=== PATIENT | female | born 1955 | race Caucasian/White ===

== ENCOUNTER → 2017-03-21 | Outpatient (CLI) | payer OTHER ==
[~2017-03-21] MED LIST: AMLO-110 PO; CALC200T PO; CALCTAB13 PO; ESTR1CRE PV; LITH1TAB PO; LOSA1TAB PO; MIRT30TA PO; OLAN-111 PO; RMR15 PO; SIMV20TA2 PO; TRAZ-119 PO
--- NOTE | 2017-03-22 14:52 | MAMMOGRAPHY REPORT ---
BILATERAL DIGITAL SCREENING MAMMOGRAM TOMOSYNTHESIS WITH CAD: 03/21/2017 CLINICAL HISTORY: Routine screening. Patient has no complaints. TECHNIQUE: Breast tomosynthesis in addition to standard 2D mammography was performed. Current study was also evaluated with a Computer Aided Detection (CAD) system. COMPARISON: Comparison is made to exams dated: 02/17/2016 mammogram, 02/10/2015 mammogram, 09/25/2013 mammogram, 09/19/2012 mammogram, 08/31/2011 mammogram, and 07/14/2010 mammogram - [facility]. BREAST COMPOSITION: There are scattered areas of fibroglandular density in both breasts. FINDINGS: There is a stable siddharth-shaped metallic biopsy marker in the central left breast, and stable grouped punctate microcalcifications in the left breast. There are mild vascular calcifications bi laterally. No suspicious mass, architectural distortion or cluster of suspicious microcalcification s is seen. IMPRESSION: ACR BI-RADS CATEGORY 1: NEGATIVE There is no mammographic evidence of malignancy. A 1 year screening mammogram is recommended. The p atient will receive written notification of the results. Approximately 10% of breast cancers are not detected with mammography. A negative mammographic repor t should not delay biopsy if a clinically suggestive mass is present. Ramya Richey M.D. ay/:03/21/2017 18:24:05 Iron Piler: Shirin Gan, [facility] letter sent: Normal 1/2 BI-RADS Code: ACR BI-RADS Category 1: Negative
== END | disposition home or self-care (01) ==
LOC: C.MAMM 15:43
PROVIDERS: ATTEND Family Medicine
DX: Z12.31 Encounter for screening mammogram for malignant neoplasm of breast (principal)

== ENCOUNTER → 2017-03-25 | Outpatient (CLI) | payer OTHER ==
[2017-03-25 11:31] LABS: CREATININE 0.98 mg/dl (0.60-1.20)
== END | disposition home or self-care (01) ==
LOC: C.LAB 10:01
PROVIDERS: ATTEND Psychiatry & Neurology Psychiatry
DX: F31.9 Bipolar disorder, unspecified (principal)

== ENCOUNTER → 2017-08-26 | Outpatient (CLI) | payer OTHER ==
[2017-08-26 11:16] LABS: BASO % 0.2 %; BASO ABS # 0.02 K/uL (0-0.2); COMPLETE YES; EOS % 3.3 %; HEMATOCRIT 44.6 % (37-47); IG% 0.2 %; LYMPH ABS # 1.81 K/uL (1.2-3.4); MEAN CELL VOLUME 86.6 fL (80-100); MEAN CORPUSCULAR HEMOGLOBIN 28.9 pg (25-34); MEAN CORPUSCULAR HGB CONC 33.4 g/dl (32-36); MEAN PLATELET VOLUME 9.9 fL (7.4-10.4); MONO % 5.6 %; NEUT % 68.7 %; PLATELET COUNT 266 K/uL (130-400); RED BLOOD COUNT 5.15 M/uL (4.2-5.4); WHITE BLOOD COUNT 8.21 K/uL (4.8-10.8)
[2017-08-26 11:43] LABS: CREATININE 1.02 mg/dl (0.60-1.20); GLUCOSE,FASTING 93 mg/dl (70-99)
[2017-08-26 11:53] LABS: CHOLESTEROL 116 mg/dl (0-200); CHOLESTEROL/HDL RATIO 2.8; HDL CHOLESTEROL 42 mg/dl; LDL CHOLESTEROL CALCULATED 59 mg/dl; TRIGLYCERIDES 74 mg/dl (0-150); VERY LOW DENSITY LIPOPROT CALC 15 mg/dl
== END | disposition home or self-care (01) ==
LOC: C.LAB 09:37
PROVIDERS: ATTEND Psychiatry & Neurology Psychiatry
DX: F31.9 Bipolar disorder, unspecified (principal); Z51.81 Encounter for therapeutic drug level monitoring; Z79.899 Other long term (current) drug therapy

== ENCOUNTER 2017-09-17 09:43 | Emergency (ER) | payer OTHER ==
[~2017-09-17] VITALS: Ht 167.6 cm; Wt 78.0 kg
[~2017-09-17 09:43] MED LIST changes: -AMLO-110 PO; -CALC200T PO; -LOSA1TAB PO; -MIRT30TA PO
[2017-09-17 09:55] VITALS: TEMP 36.7; Ht 167.6 cm; Wt 78.0 kg
--- NOTE | 2017-09-17 10:11 | EMERGENCY ROOM VISIT NOTE ---
History Report prepared by Melissa: Tara Marquez Under the Supervision of: Dr. Ace Momin D.O. First contact with patient: 09:58 Chief Complaint: NOSE BLEED (MINOR) Stated Complaint: NOSEBLEEDS History of Present Illness The patient is a 62 year old female who presents to the Emergency Room with complaints of intermittent nosebleeds starting several months ago. She has been having 2-3 nosebleeds a day on the right side. They just start out of the blue. The bleeding stops after she pinches her nose for 10-15 minutes. She has been to see her PCP who recommended saline spray. The saline spray had been helping, but her symptoms now seem to be worsening. She notes that she had the same side cauterized 3 years ago. Her last nosebleed was yesterday around noon. She denies any fever, chills, or vomiting. She was recently started on losartan. She denies any other changes in medication. Source of History: patient Onset: several months ago Position: nose Quality: other (bleeds) Timing: intermittent Associated Symptoms: No fevers, No chills, No vomiting Review of Systems See HPI for pertinent positives & negatives. A total of 10 systems reviewed and were otherwise negative. Past Medical & Surgical Medical Problems: (1) Bipolar disorder (2) Dyslipidemia (3) History of adenomatous polyp of colon (4) Osteoporosis (5) s/p colonoscopy (6) s/p tonsillectomy Family History No pertinent family history stated. Social History Smoking Status: Never Smoker Alcohol Use: none Drug Use: none Marital Status: Occupation Status: employed Current/Historical Medications Scheduled Amlodipine (Norvasc), Unknown Dose PO DAILY Calcium Carbonate-Vitamin D (Oscal 500/200 D-3), 1 TAB PO BID Evan Carbonate Er (Lithobid Ext Rel), 450 MG PO HS Losartan Potassium (Cozaar), 25 MG PO DAILY Mirtazapine (Remeron), 60 MG PO HS Olanzapine (Zyprexa), 5 MG PO HS Simvastatin (Zocor), 20 MG PO QPM Trazodone Hcl (Desyrel), 50 MG PO HS Allergies Coded Allergies: No Known Allergies (Verified , 09/17/17) Physical Exam Vital Signs Date Time Temp Pulse Resp B/P (MAP) Pulse Ox O2 Delivery O2 Flow Rate FiO2 09/17/17 11:23 86 20 135/90 96 09/17/17 09:55 36.7 94 17 139/91 95 Room Air Physical Exam GENERAL: Patient is awake, alert, and in no acute distress. Patient is resting comfortably and showing no signs of anxiety EYES: The conjunctivae are clear. The pupils are round and reactive. EARS, NOSE, MOUTH AND THROAT: The nose is without any evidence of any deformity. Mucous membranes are moist tongue is midline NECK: The neck is nontender and supple. RESPIRATORY: Normal respiratory effort is noted there is no evidence of wheezing rhonchi or rales CARDIOVASCULAR: Regular rate and rhythm noted there no murmurs rubs or gallops normal S1 normal S2 GASTROINTESTINAL: The abdomen is soft. Bowel sounds are present in all quadrants. Abdomen is nontender MUSCULOSKELETAL/EXTREMITIES: There is no evidence of gross deformity full range of motion is noted in the hips and shoulders SKIN: There is no obvious evidence of any rash. There are no petechiae, pallor or cyanosis noted. NEUROLOGIC: Patient is awake alert and oriented x3 strength is symmetric patellar reflexes are 2+ bilaterally Medical Decision & Procedures Laboratory Results 09/17/17 10:12 Red Blood Count 5.05, Mean Corpuscular Volume 86.7, Mean Corpuscular Hemoglobin 29.1, Mean Corpuscular Hemoglobin Concent 33.6, Mean Platelet Volume 9.4, Neutrophils (%) (Auto) 70.8, Lymphocytes (%) (Auto) 20.8, Monocytes (%) (Auto) 5.0, Eosinophils (%) (Auto) 3.0, Basophils (%) (Auto) 0.2, Neutrophils # (Auto) 6.36, Lymphocytes # (Auto) 1.87, Monocytes # (Auto) 0.45, Eosinophils # (Auto) 0.27, Basophils # (Auto) 0.02 09/17/17 10:12 Test 09/17/17 10:12 White Blood Count 8.99 K/uL (4.8-10.8) Red Blood Count 5.05 M/uL (4.2-5.4) Hemoglobin 14.7 g/dL (12.0-16.0) Hematocrit 43.8 % (37-47) Mean Corpuscular Volume 86.7 fL (80-100) Mean Corpuscular Hemoglobin 29.1 pg (25-34) Mean Corpuscular Hemoglobin Concent 33.6 g/dl (32-36) Platelet Count 229 K/uL (130-400) Mean Platelet Volume 9.4 fL (7.4-10.4) Neutrophils (%) (Auto) 70.8 % Lymphocytes (%) (Auto) 20.8 % Monocytes (%) (Auto) 5.0 % Eosinophils (%) (Auto) 3.0 % Basophils (%) (Auto) 0.2 % Neutrophils # (Auto) 6.36 K/uL (1.4-6.5) Lymphocytes # (Auto) 1.87 K/uL (1.2-3.4) Monocytes # (Auto) 0.45 K/uL (0.11-0.59) Eosinophils # (Auto) 0.27 K/uL (0-0.5) Basophils # (Auto) 0.02 K/uL (0-0.2) RDW Standard Deviation 42.6 fL (36.4-46.3) RDW Coefficient of Variation 13.5 % (11.5-14.5) Immature Granulocyte % (Auto) 0.2 % Immature Granulocyte # (Auto) 0.02 K/uL (0.00-0.02) Prothrombin Time 10.0 SECONDS (9.0-12.0) Prothromb Time International Ratio 0.9 (0.9-1.1) Activated Partial Thromboplast Time 27.7 SECONDS (21.0-31.0) Partial Thromboplastin Ratio 1.1 Anion Gap 5.0 mmol/L (3-11) Est Creatinine Clear Calc Drug Dose 56.1 ml/min Estimated GFR () 62.1 Estimated GFR (Non- 53.6 BUN/Creatinine Ratio 9.3 (10-20) Calcium Level 9.4 mg/dl (8.5-10.1) Total Bilirubin 0.4 mg/dl (0.2-1) Direct Bilirubin 0.1 mg/dl (0-0.2) Aspartate Amino Transf (AST/SGOT) 12 U/L (15-37) Alanine Aminotransferase (ALT/SGPT) 21 U/L (12-78) Alkaline Phosphatase 109 U/L (45-117) Total Protein 7.8 gm/dl (6.4-8.2) Albumin 4.2 gm/dl (3.4-5.0) Evan Level 0.6 mMOL/L (0.6-1.2) Laboratory results per my review. ED Course 0959: The patient was evaluated in room A12B. A complete history and physical examination were performed. 1152: I reevaluated the patient. She is resting comfortably. I discussed the results with her. She verbalized agreement of the treatment plan. She would like to schedule an ENT appointment herself. She was discharged home. Medical Decision Prior records/ancillary studies reviewed. Triage Nursing notes reviewed. The patient's history was concerning for epistaxis. Differential diagnosis: Etiologies such as anterior epistaxis, coagulopathy, traumatic injury, fracture , septal hematoma, posterior epistaxis as well as other pathologies were entertained. The patient is a 62-year-old female who presented to the emergency department for an evaluation of epistaxis. The patient did not have acute epistaxis or site could be identified causing epistaxis. The patient's laboratory results were discussed with her. She was encouraged to follow-up with her family doctor or to set up an appointment with an ear nose and throat physician. She was also encouraged to return to the emergency apartment immediately if symptoms change worsen or the need arises. Medication Reconcilliation Current Medication List: was personally reviewed by me Blood Pressure Screening Patient's blood pressure: Normal blood pressure Blood pressure disposition: Did not require urgent referral Impression Primary Impression: Epistaxis Scribe Attestation The scribe's documentation has been prepared under my direction and personally reviewed by me in its entirety. I confirm that the note above accurately reflects all work, treatment, procedures, and medical decision making performed by me. Departure Information Dispostion Home / Self-Care Referrals Loc Bradford M.D. (PCP) Forms HOME CARE DOCUMENTATION FORM, IMPORTANT VISIT INFORMATION, WORK / SCHOOL INSTRUCTIONS Patient Instructions My [facility], [facility] Additional Instructions Call to schedule a follow-up appointment with the ear nose and throat doctor. Continue all medications as prescribed. Continue using direct pressure when the bleeding starts.
[2017-09-17 10:24] LABS: BASO % 0.2 %; BASO ABS # 0.02 K/uL (0-0.2); COMPLETE YES; HEMATOCRIT 43.8 % (37-47); IG% 0.2 %; LYMPH % 20.8 %; LYMPH ABS # 1.87 K/uL (1.2-3.4); MEAN CELL VOLUME 86.7 fL (80-100); MEAN CORPUSCULAR HEMOGLOBIN 29.1 pg (25-34); MEAN CORPUSCULAR HGB CONC 33.6 g/dl (32-36); MEAN PLATELET VOLUME 9.4 fL (7.4-10.4); NEUT % 70.8 %; PLATELET COUNT 229 K/uL (130-400); RED BLOOD COUNT 5.05 M/uL (4.2-5.4); WHITE BLOOD COUNT 8.99 K/uL (4.8-10.8)
[2017-09-17 10:38] LABS: INR 0.9 (0.9-1.1); PARTIAL THROMBOPLASTIN RATIO 1.1
[2017-09-17] MEDS ORDERED: MIRT30TA PO (10:50)
[2017-09-17] MEDS ORDERED: CALC200T PO (10:50)
[2017-09-17] MEDS ORDERED: LOSA1TAB PO (10:50)
[2017-09-17] MEDS ORDERED: AMLO-110 PO (10:50)
[2017-09-17 10:51] LABS: BUN/CREATININE RATIO 9.3 (10-20); CALCIUM 9.4 mg/dl (8.5-10.1); CREATININE 1.11 mg/dl (0.60-1.20)
[2017-09-17 11:23] VITALS: BP 135/90; PULSE 86; O2SAT 96
== END 2017-09-17 12:27 | disposition home or self-care (01) ==
LOC: C.EDB 09:44 → C.EDA 12:27
DX: R04.0 Epistaxis (principal)

== ENCOUNTER → 2018-03-17 | Outpatient (CLI) | payer OTHER ==
[~2018-03-17] MED LIST changes: +AMLO-110 PO; +CALC200T PO; -CALCTAB13 PO; -ESTR1CRE PV; +LOSA1TAB PO; +MIRT30TA PO; -RMR15 PO
[2018-03-17 08:57] LABS: BASO % 0.4 %; BASO ABS # 0.04 K/uL (0-0.2); EOS % 2.8 %; EOS ABS # 0.26 K/uL (0-0.5); HEMATOCRIT 43.5 % (37-47); HEMOGLOBIN 14.6 g/dL (12.0-16.0); IG# 0.02 K/uL (0.00-0.02); LYMPH % 22.1 %; LYMPH ABS # 2.06 K/uL (1.2-3.4); MEAN CORPUSCULAR HEMOGLOBIN 28.5 pg (25-34); MEAN CORPUSCULAR HGB CONC 33.6 g/dl (32-36); MEAN PLATELET VOLUME 9.2 fL (7.4-10.4); MONO % 4.5 %; MONO ABS # 0.42 K/uL (0.11-0.59); NEUT ABS # 6.51 K/uL (1.4-6.5); PLATELET COUNT 233 K/uL (130-400); RED CELL DISTRIBUTION WIDTH SD 40.5 fL (36.4-46.3); WHITE BLOOD COUNT 9.31 K/uL (4.8-10.8)
[2018-03-17 09:33] LABS: CREATININE 1.08 mg/dl (0.60-1.20); GLUCOSE,FASTING 99 mg/dl (70-99)
[2018-03-17 09:43] LABS: CHOLESTEROL 125 mg/dl (0-200); LDL CHOLESTEROL CALCULATED 59 mg/dl
== END | disposition home or self-care (01) ==
LOC: C.LAB 08:01
PROVIDERS: ATTEND Psychiatry & Neurology Psychiatry
DX: F31.9 Bipolar disorder, unspecified (principal); Z79.899 Other long term (current) drug therapy

== ENCOUNTER 2025-03-13 17:24 | Inpatient (IN) ==
[2025-03-13 18:19] LABS: Hematocrit (blood only) 43.5 % (37.0-47.0); Hemoglobin 14.6 g/dl (12.0-16.0); Mean Corpuscular Hemoglobin 28.6 pg (25.0-34.0); Mean Corpuscular Hgb Conc 33.6 g/dL (32.0-36.0); Mean Corpuscular Volume 85.3 fL (80.0-100.0); Mean Platelet Volume 9.3 fL (9.4-12.4); Platelet Count 254 K/uL (130-400); RDW Coefficient of Variation 13.2 % (11.5-14.5); RDW Standard Deviation 40.9 fL (36.4-46.3); White Blood Count 28.04 K/ul (4.8-10.8)
[2025-03-13] MEDS: ONDANSETRON INJ 2 MG/ML 2 ML VIAL IV STA (18:30)
[2025-03-13] MEDS: HYDROmorphone INJ 0.5 MG/0.5 ML SYR IV PRN (18:31)
[2025-03-13] MEDS: SODIUM CHLORIDE 0.9% 1,000 ML IV ONE (18:32)
[2025-03-13 18:37] LABS: Albumin Globulin Ratio 1.4 (0.9-2); Albumin Level 4.4 gm/dl (3.4-5.0); Bilirubin,Total 1.3 mg/dl (0.2-1.0); Calcium 9.5 mg/dl (8.6-10.3); Creatinine Clr Calc Pharmacy 66.9 ml/min; Globulin 3.2 gm/dl (2.5-4.0); Potassium 3.9 mmol/L (3.5-5.1); Total Protein 7.6 gm/dl (6.0-8.3)
[2025-03-13 18:38] LABS: Basophils # (auto) 0.06 K/uL (0.00-0.20); Basophils % (auto) 0.2 %; Eosinophils # (auto) 0.02 K/uL (0.00-0.50); Eosinophils % (auto) 0.1 %; Immature Granulocytes % (auto) 1.1 %; Lymphocytes # (auto) 1.39 K/uL (1.20-3.40); Monocytes % (auto) 3.6 %; Neutrophils # (auto) 25.27 K/uL (1.40-6.50)
[2025-03-13 18:39] LABS: Appearance Urine Clear (Clear); Bacteria Urine Automated 1+ (None Seen); Bilirubin Urine Negative (Negative); Blood Urine 2+ (Negative); Cast Urine Automated 0-2 /lpf (0-2); Color Urine Dark Yellow; Glucose Urine UA Negative (Negative); Ketones Urine 1+ (Negative); Leukocyte Esterase Urine 2+ (Negative); Nitrite Urine Negative (Negative); Protein Urine 2+ (Negative); Specific Gravity Urine 1.026 (1.000-1.030); Urobilinogen Urine Negative (Negative); WBC Urine Automated 21-50 /hpf (0-5)
[2025-03-13 19:00] LABS: Influenza A virus by PCR Negative (Neg); Influenza B virus by PCR Negative (Neg); RSV by PCR Negative (Neg); SARS CoV2 RNA(COVID-19) Ceph NEGATIVE (Negative)
--- NOTE | 2025-03-13 19:00 | Emergency Department Note ---
Impression & Plan Colonic diverticular abscess, Abdominal pain, lower, Leukocytosis, Nausea ED Provider Note NAME: BENNIE HO AGE: 69 SEX: Female INFORMANT: Patient ED PROVIDER(S): Steve Saldivar MD CHIEF COMPLAINT: Abdominal pain PLAN: Disposition: Admitted Outpatient prescription management: none Referral: None MEDICAL DECISION MAKING: Patient present because of acute abdominal pain. She was tachycardic. She is quite tender on examination and rated her pain as a 9 out of 10. She was treated with IV fluids. She was given Dilaudid and Zofran for symptom control. Blood work showed a marked leukocytosis of 28,000. Chemistry panel was unremarkable. Patient was sent for CT imaging. IV Zosyn was ordered. CT imaging shows a suspected diverticular abscess. Urinalysis is abnormal and culture sent. On reassessment patient was doing well. No hypotension. [place] better with pain control. Clinically looked improved. IV daptomycin was added for additional coverage. Consultation was made with the [facility] service, Dr. Maharaj. Patient was evaluated in the ER and admitted for further management. Did discuss surgical consultation and he will place this for further management. Care/management discussed with: assistant sales center manager Level of care consideration(s): After review of the information above and other included data, I feel the patient requires escalation of care to admission Triage Nursing notes: reviewed and agree them. Vital Signs: reviewed and remarkable for tachycardia Additional History obtained from: none Chronic Medical/Social Conditions affecting care: none Prior/ Outside/ External records reviewed: none Differential Diagnosis: Diverticulitis, renal colic, UTI, appendicitis, mesenteric ischemia, aortic pathology, infections, inflammatory bowel disease, PUD, biliary pathology, as well as other pathologies. Diagnostics, independently interpreted by me: ECG: Twelve-lead ECG reveals sinus tachycardia [address] elevation or depression. Cardiac Monitoring: Cardiac monitoring ordered by me: The patient was placed on continuous cardiac monitoring and observed. It revealed sinus tachycardic rhythm at 105 beats per minute without ectopy or evidence of dysrhythmia. Medical decision rules: none Imaging studies: CT imaging of the abdomen pelvis is concerning for diverticular abscess. I refer you to the EMR for further details. HPI: 69 year old Female arrives for evaluation of abdominal pain. This started yesterday and and is worsening. The patient also notes the following associated symptoms, nausea, dry heaves, chills, feeling feverish. The patient has found no relieving factors. Current pain is rated as 9/10. Pt denies LOC, headache, diaphoresis, visual changes, neck pain, chest pain, breathing difficulties, back pain, melena, hematochezia, urinary symptoms, numbness, weakness, lymphadenopathy, rash, or other complaints. PAST MEDICAL HISTORY: See Below, diverticulitis, hypertension PAST SURGICAL HISTORY: See Below, SOCIAL HISTORY: See Below, non-smoker HOME MEDICATIONS: See Below ALLERGIES: See Below VITALS: See Below PHYSICAL EXAMINATION: GENERAL: Awake, alert, uncomfortable-appearing, in no distress HENT: Normocephalic, atraumatic. Oropharynx unremarkable. EYES: Normal conjunctiva. Sclera non-icteric. NECK: Inspection normal. Non-tender. Supple. No nuchal rigidity. FROM. No masses. RESPIRATORY: Clear to auscultation. No wheezes. No rales. Normal respiratory effort. CARDIAC: Tachycardic rate. Normal rhythm. No murmurs. No rubs. Extremities warm and well perfused. Pulses equal. No JVD. GI: Soft, non-distended. Left lower quadrant tenderness to palpation. Mild rebound and guarding. No masses. RECTAL: Deferred. MUSCULOSKELETAL: Atraumatic. Chest examination reveals no tenderness. The back is symmetrical on inspection without obvious abnormality. There is no CVA tenderness to palpation. No joint edema. LOWER EXTREMITIES: Calves are equal size bilaterally and non-tender. No edema. No discoloration. NEURO: Normal sensorium. No sensory or motor deficits noted. SKIN: No rash or jaundice noted. PROCEDURES: none CRITICAL CARE: none OBSERVATION NOTE: none Past Med/Surg History Problem List (Updated 03/13/25 @ 20:58 by Steve Saldivar MD) Colonic diverticular abscess (Acute) Nausea (Acute) Leukocytosis (Acute) Abdominal pain, lower (Acute) Family history of Alzheimer's disease Vitamin D deficiency HTN (hypertension) Osteoporosis Dyslipidemia Bipolar disorder Abnormal brain MRI Vertigo Medical History (Updated 03/13/25 @ 20:58 by Steve Saldivar MD) Benign neoplasm of colon Surgical History (Updated 10/09/23 @ 14:43 by Mendy Lazaro) Hx of colonoscopy History of tonsillectomy and adenoidectomy Family History (Updated 10/09/23 @ 14:45 by Mendy Lazaro) Mother Alzheimer disease Grandmother (Maternal) Cancer Aunt Cancer Sister Depression Social History (Updated 10/09/23 @ 14:46 by Mendy Lazaro) Smoking Status: Former smoker Do You Dip or Chew Tobacco: No; Hx Alcohol Use: No Hx Substance Use: No Preferred Language: Amharic marital status: Feels Safe at Home: Yes Allergies Allergies Allergy/AdvReac Type Severity Reaction Status Date / Time lisinopril Allergy Verified 10/16/23 09:45 Home Meds Home Medications Medication Instructions Recorded Confirmed LITHIUM CARBONATE ER (LITHOBID EXT 450 mg PO HS #0 tabs 06/06/12 10/16/23 REL) OLANZAPINE (ZYPREXA) 5 mg PO HS #0 tabs 06/06/12 10/16/23 SIMVASTATIN (ZOCOR) 20 mg PO QPM #0 tabs 06/06/12 10/16/23 TRAZODONE HCL (DESYREL) 50 mg PO HS #0 tabs 06/06/12 10/16/23 Amlodipine (Norvasc) PO DAILY #0 tabs 09/17/17 10/16/23 CALCIUM CARBONATE-VITAMIN D (OSCAL 1 tab PO BID ##0 09/17/17 10/16/23 500/200 D-3) LOSARTAN POTASSIUM (COZAAR) 25 mg PO DAILY #0 tabs 09/17/17 10/16/23 MIRTAZAPINE (REMERON) 60 mg PO HS #0 tabs 09/17/17 10/16/23 alprazolam 0.25 mg tablet 0.25 mg PO BID 10/09/23 10/16/23 meclizine 25 mg tablet 25 mg PO TID 10/09/23 10/16/23 multivitamin 1 tab PO DAILY 10/09/23 10/16/23 Results & Data (ED) Vital Signs Vital Signs - 24 hr 03/13/25 17:38 03/13/25 18:23 03/13/25 18:27 Temperature 36.8 C Temperature Source Oral Pulse Rate 116 H 115 H Pulse Rate [Apical] Respiratory Rate 20 Respiratory Effort / Characteristics Non-Labored Spontaneous Respiratory Depth Normal Respiratory Pattern Regular Blood Pressure 152/75 H Blood Pressure [Left Arm] Blood Pressure Mean 100 Blood Pressure Mean [Left Arm] Pulse Oximetry 95 93 Oxygen Delivery Method Room Air Room Air Sepsis Recent Fever Within 48 Hours Yes Sepsis New/Unexplained Change in Mental Status No Sepsis Action Taken by Nursing No Action Required 03/13/25 19:27 Temperature Temperature Source Pulse Rate Pulse Rate [Apical] 103 H Respiratory Rate 17 Respiratory Effort / Characteristics Respiratory Depth Respiratory Pattern Blood Pressure Blood Pressure [Left Arm] 135/76 Blood Pressure Mean Blood Pressure Mean [Left Arm] 95 Pulse Oximetry 90 Oxygen Delivery Method Room Air Sepsis Recent Fever Within 48 Hours Sepsis New/Unexplained Change in Mental Status Sepsis Action Taken by Nursing Laboratory Data 03/13/25 18:04 03/13/25 18:04 Lab Results 03/13/25 03/13/25 03/13/25 Range/Units 18:00 18:04 18:20 WBC 28.04 H (4.8-10.8) K/ul RBC 5.10 (4.20-5.40) M/uL Hgb 14.6 (12.0-16.0) g/dl Hct 43.5 (37.0-47.0) % MCV 85.3 (80.0-100.0) fL MCH 28.6 (25.0-34.0) pg MCHC 33.6 (32.0-36.0) g/dL RDW Std Deviation 40.9 (36.4-46.3) fL RDW Coeff of Doe 13.2 (11.5-14.5) % Plt Count 254 (130-400) K/uL MPV 9.3 L (9.4-12.4) fL Immature Gran % (Auto) 1.1 % Neut % (Auto) 90.0 % Lymph % (Auto) 5.0 % [place] % (Auto) 3.6 % Eos % (Auto) 0.1 % Baso % (Auto) 0.2 % Neut # (Auto) 25.27 H (1.40-6.50) K/uL Lymph # (Auto) 1.39 (1.20-3.40) K/uL [place] # (Auto) 1.00 H (0.11-0.59) K/uL Eos # (Auto) 0.02 (0.00-0.50) K/uL Baso # (Auto) 0.06 (0.00-0.20) K/uL Immature Gran # (Auto) 0.30 H (0.01-0.20) K/uL Sodium 136 (136-145) mmol/L Potassium 3.9 (3.5-5.1) mmol/L Chloride 104 (98-107) mmol/L Carbon Dioxide 25 (21-32) mmol/L Anion Gap 7 (3-11) BUN 15 (6-23) mg/dl Creatinine 0.88 (0.6-1.2) mg/dl Est Cr Clr Drug Dosing 66.9 ml/min eGFR 71.54 BUN/Creatinine Ratio 17.0 (10-20) Glucose 136 H (70-99(Fasting)) mg/dl Calcium 9.5 (8.6-10.3) mg/dl Total Bilirubin 1.3 H (0.2-1.0) mg/dl AST 19 (13-39) U/L ALT 18 (7-52) U/L Alkaline Phosphatase 96 (34-104) U/L Total Protein 7.6 (6.0-8.3) gm/dl Albumin 4.4 (3.4-5.0) gm/dl Globulin 3.2 (2.5-4.0) gm/dl Albumin/Globulin Ratio 1.4 (0.9-2) Lipase 21 (11-82) U/L Urine Color Dark Yellow Urine Appearance Clear (Clear) Urine pH 6.0 (4.5-7.5) Ur Specific [place] 1.026 (1.000-1.030) Urine Protein 2+ H (Negative) Urine Glucose (UA) Negative (Negative) Urine Ketones 1+ H (Negative) Urine Blood 2+ H (Negative) Urine Nitrite Negative (Negative) Urine Bilirubin Negative (Negative) Urine Urobilinogen Negative (Negative) Ur Leukocyte Esterase 2+ H (Negative) Urine WBC (Auto) 21-50 H (0-5) /hpf Urine RBC (Auto) 11-20 H (0-2) /hpf U Hyaline Cast (Auto) 0-2 (0-2) /lpf U Epithel Cells (Auto) 6-10 H (0-2) /hpf Urine Bacteria (Auto) 1+ H (None Seen) SARS-CoV-2 (PCR) NEGATIVE (Negative) Influenza Type A (PCR) Negative (Neg) Influenza Type B (PCR) Negative (Neg) RSV (RT-PCR) Negative (Neg) Administered Medications Hydromorphone HCl (Hydromorphone Inj 0.5 Mg/0.5 Ml Syr) 0.5 mg IV Q15M PRN PRN Reason: Pain Stop: 03/27/25 18:25 Last Admin: 03/13/25 18:31 Dose: 0.5 mg Documented By: GABBIE Sodium Chloride (Nss) 1,000 mls @ 125 mls/hr IV .Q8H TOMASZ Stop: 03/16/25 18:29 Last Admin: 03/13/25 19:50 Dose: 125 mls/hr Documented By: GABBIE Discontinued Medications Sodium Chloride (Nss) 1,000 mls @ 999 mls/hr IV .Q1H1M ONE Stop: 03/13/25 19:28 Last Infusion: 03/13/25 19:50 Dose: Infused Documented By: Admin: 03/13/25 18:32 Dose: 999 mls/hr Documented By: GABBIE Piperacillin Sod/Tazobactam Sod (Zosyn) 4.5 gm in 100 mls @ 200 mls/hr IV NOW ONE; Protocol Stop: 03/13/25 19:20 Last Infusion: 03/13/25 19:55 Dose: Infused Documented By: Admin: 03/13/25 19:23 Dose: 200 mls/hr Documented By: GABBIE Ondansetron HCl (Ondansetron Inj 2 Mg/Ml 2 Ml Vial) 4 mg IV NOW STA Stop: 03/13/25 18:27 Last Admin: 03/13/25 18:30 Dose: 4 mg Documented By: GABBIE Imaging Data Radiologist's Impression: Abdomen/Pelvis CT 03/13/25 18:08 EXAM: CT abd pelvis wo con CLINICAL HISTORY: Lower abdominal pain, hx of diverticulitis TECHNIQUE: Non-contrast CT of the abdomen and pelvis was performed, with the following protocol: axial images, and reconstructed coronal and sagittal images. No intravenous contrast was administered. One of the following dose reduction techniques was utilized for this exam: Automated exposure control, adjustment of the mA and/or kV according to patient size, and use of iterative reconstruction. DLP: 1275.80 mGy-cm. COMPARISON: No prior studies available for comparison. FINDINGS: Abdomen: Liver: Normal in size, shape, and density. No focal lesions, cysts, or masses were identified. Gallbladder and Biliary System: The gallbladder is normal in size and shape. No wall thickening, pericholecystic fluid, or gallstones were identified. Pancreas: Pancreatic head, body, and tail are visualized and appear normal in size and density. No pancreatic masses or calcifications were noted. Spleen: Normal in size, shape, and density. No splenic lesions or masses were identified. Kidneys and Adrenal Glands: Both kidneys are normal in size, shape, and position. Cortical thickness is within normal limits. No renal calculi or hydronephrosis. Adrenal glands are unremarkable. Appendix: The appendix is normal in size without ade-appendiceal fat stranding and without an appendicolith. No evidence of appendiceal abscess or perforation. Pelvis: Urinary Bladder: Normal in contour and wall thickness. No intraluminal lesions. Uterus: Normal in size and contour. No masses or abnormal thickening. Ovaries: Not well visualized but no gross abnormalities noted. Vagina: Normal in contour and wall thickness. Cervix: No evidence of mass or abnormal thickening. Bowel: The visualized bowel loops are normal in caliber. No evidence of bowel obstruction. Diffuse colonic diverticulosis. Gas-containing area in between the uterine fundus and sigmoid colon measuring 4.1 x 5.1 cm with perifocal fat stranding, suggestive of a diverticular abscess (Hinchey stage Ib). Clinical and laboratory correlation are advised as well as follow up. It is inseparable from the left gonadal vein, couldn't exclude the possibility of thrombophlebitis. Further assessment with contrast study may be recommended. Multiple locoregional reactive mesocolic lymph nodes are seen, largest 1.1 x 1.3 cm. Thickening of left peritoneal reflections also noted. Multiple reactive left external iliac lymph nodes. Two large uncomplicated duodenal diverticula, measuring 6.5 x 6.4 cm and 5 x 5.7 cm. Bones and Soft Tissues: Moderate (grade 2) spondylolisthesis of L5 over S1 Diffuse osteoporotic and spondylotic changes. T11 old compression vertebral fracture. IMPRESSION: 1. Diffuse colonic diverticulosis. 2. Gas-containing area in between the uterine fundus and sigmoid colon measuring 4.1 x 5.1 cm with perifocal fat stranding, suggestive of a diverticular abscess (Hinchey stage Ib). Clinical and laboratory correlation are advised as well as follow up. 3. It is inseparable from the left gonadal vein, couldn't exclude the possibility of thrombophlebitis. Further assessment with contrast study may be recommended. 4. Multiple locoregional reactive mesocolic lymph nodes are seen, largest 1.1 x 1.3 cm. Thickening of left peritoneal reflections also noted. 5. Multiple reactive left external iliac lymph nodes. 6. Two large uncomplicated duodenal diverticula, measuring 6.5 x 6.4 cm and 5 x 5.7 cm. Electronically signed by Rojelio Maravilla 03-13-2025 8:42 PM Discharge Plan Visit Data Chief Complaint: Abdominal Pain Stated Complaint: STOMACH PAINS, FEVER, CAT SCAN NEEDED, ED Provider: Steve Saldivar Discharge Problem: Colonic diverticular abscess, Abdominal pain, lower, Leukocytosis, Nausea Patient Disposition: Admitted As Inpatient Condition: Fair Forms Stand Alone Forms: [facility] Prescriptions Prescriptions: No Action OLANZAPINE (ZYPREXA) 5 MG tablet 5 mg PO HS Qty: 0 SIMVASTATIN (ZOCOR) 20 MG tablet 20 mg PO QPM Qty: 0 TRAZODONE HCL (DESYREL) 50 MG tablet 50 mg PO HS Qty: 0 LITHIUM CARBONATE ER (LITHOBID EXT REL) 450 MG tablet 450 mg PO HS Qty: 0 Amlodipine (Norvasc) 5 MG tablet PO DAILY Qty: 0 CALCIUM CARBONATE-VITAMIN D (OSCAL 500/200 D-3) 1 TAB tablet 1 tab PO BID Qty: 0 LOSARTAN POTASSIUM (COZAAR) 25 MG tablet 25 mg PO DAILY Qty: 0 MIRTAZAPINE (REMERON) 30 MG tablet 60 mg PO HS Qty: 0 alprazolam 0.25 mg tablet 0.25 mg PO BID meclizine 25 mg tablet 25 mg PO TID multivitamin Tablet 1 tab PO DAILY Referrals Referrals: Loc Bradford MD [Primary Care Provider] -
[2025-03-13] MEDS: PIPERACILLIN/TAZOBACTAM 4.5 GM/100 ML BAG IV ONE (19:23)
[2025-03-13] MEDS: SODIUM CHLORIDE 0.9% 1,000 ML IV SCH (19:50)
--- NOTE | 2025-03-13 20:42 | CT Scan Report ---
EXAM: CT abd pelvis wo con CLINICAL HISTORY: Lower abdominal pain, hx of diverticulitis TECHNIQUE: Non-contrast CT of the abdomen and pelvis was performed, with the following protocol: axial images, and reconstructed coronal and sagittal images. No intravenous contrast was administered. One of the following dose reduction techniques was utilized for this exam: Automated exposure control, adjustment of the mA and/or kV according to patient size, and use of iterative reconstruction. DLP: 1275.80 mGy-cm. COMPARISON: No prior studies available for comparison. FINDINGS: Abdomen: Liver: Normal in size, shape, and density. No focal lesions, cysts, or masses were identified. Gallbladder and Biliary System: The gallbladder is normal in size and shape. No wall thickening, pericholecystic fluid, or gallstones were identified. Pancreas: Pancreatic head, body, and tail are visualized and appear normal in size and density. No pancreatic masses or calcifications were noted. Spleen: Normal in size, shape, and density. No splenic lesions or masses were identified. Kidneys and Adrenal Glands: Both kidneys are normal in size, shape, and position. Cortical thickness is within normal limits. No renal calculi or hydronephrosis. Adrenal glands are unremarkable. Appendix: The appendix is normal in size without ade-appendiceal fat stranding and without an appendicolith. No evidence of appendiceal abscess or perforation. Pelvis: Urinary Bladder: Normal in contour and wall thickness. No intraluminal lesions. Uterus: Normal in size and contour. No masses or abnormal thickening. Ovaries: Not well visualized but no gross abnormalities noted. Vagina: Normal in contour and wall thickness. Cervix: No evidence of mass or abnormal thickening. Bowel: The visualized bowel loops are normal in caliber. No evidence of bowel obstruction. Diffuse colonic diverticulosis. Gas-containing area in between the uterine fundus and sigmoid colon measuring 4.1 x 5.1 cm with perifocal fat stranding, suggestive of a diverticular abscess (Hinchey stage Ib). Clinical and laboratory correlation are advised as well as follow up. It is inseparable from the left gonadal vein, couldn't exclude the possibility of thrombophlebitis. Further assessment with contrast study may be recommended. Multiple locoregional reactive mesocolic lymph nodes are seen, largest 1.1 x 1.3 cm. Thickening of left peritoneal reflections also noted. Multiple reactive left external iliac lymph nodes. Two large uncomplicated duodenal diverticula, measuring 6.5 x 6.4 cm and 5 x 5.7 cm. Bones and Soft Tissues: Moderate (grade 2) spondylolisthesis of L5 over S1 Diffuse osteoporotic and spondylotic changes. T11 old compression vertebral fracture. IMPRESSION: 1. Diffuse colonic diverticulosis. 2. Gas-containing area in between the uterine fundus and sigmoid colon measuring 4.1 x 5.1 cm with perifocal fat stranding, suggestive of a diverticular abscess (Hinchey stage Ib). Clinical and laboratory correlation are advised as well as follow up. 3. It is inseparable from the left gonadal vein, couldn't exclude the possibility of thrombophlebitis. Further assessment with contrast study may be recommended. 4. Multiple locoregional reactive mesocolic lymph nodes are seen, largest 1.1 x 1.3 cm. Thickening of left peritoneal reflections also noted. 5. Multiple reactive left external iliac lymph nodes. 6. Two large uncomplicated duodenal diverticula, measuring 6.5 x 6.4 cm and 5 x 5.7 cm. Electronically signed by Rojelio Maravilla 03-13-2025 8:42 PM
--- NOTE | 2025-03-13 21:37 | History & Physical Report ---
Date of Service March 13, 2025 Assessment & Plan (1) Colonic diverticular abscess: Plan: 69-year-old female with past medical history significant for dyslipidemia, hypertension, vitamin D deficiency, bipolar affective disorder and depression presents with left-sided abdominal pain. Patient says left-sided abdominal pain started Monday morning 3:30 AM. Pain is 9/10 in severity. Associated with dry heaves. Having normal bowel movements. Normal micturition. Denies any chest pain. No shortness of breath. No cough. Has some runny nose. No sore throat. No earaches. Slightly tachycardic. Blood pressure is okay. She had temperature at home. Currently afebrile. History of diverticulitis several years ago. Colon diverticular abscess CT scan showing 4.1 x 5.1 cm diverticular abscess Multiple locoregional lymph nodes largest 1.1 x1.3 cm. Multiple left external iliac lymph nodes 2 large uncomplicated duodenal diverticula measuring 6.5 x 6.4 cm Er started on IV Zosyn and Dapto which will be continued IV fluids Will follow lactic acid N.p.o. 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 Patient says left-sided abdominal pain started Monday morning 3:30 AM. Pain is 9/10 in severity. Associated with dry heaves. Having normal bowel movements. Normal micturition. Denies any chest pain. No shortness of breath. No cough. Has some runny nose. No sore throat. No earaches. Slightly tachycardic. Blood pressure is okay. She had temperature at home. Currently afebrile. History of diverticulitis several years ago. Past medical history. As mentioned above. Past surgical history. Colonoscopy. Tonsillectomy and adenoidectomy. Social history. No smoking. No alcohol use. No drug use. Family history. Paternal aunt had cancer. Maternal grandmother had cancer. Mother had Alzheimer's disease. Sister has depression. Allergies Allergy/AdvReac Type Severity Reaction Status Date / Time lisinopril Allergy Verified 03/13/25 21:03 Home Medications Medication Instructions Recorded Confirmed Type LITHIUM CARBONATE ER (LITHOBID EXT 450 mg PO HS #0 tabs 06/06/12 03/13/25 History REL) OLANZAPINE (ZYPREXA) 5 mg PO HS #0 tabs 06/06/12 03/13/25 History SIMVASTATIN (ZOCOR) 20 mg PO QPM #0 tabs 06/06/12 03/13/25 History TRAZODONE HCL (DESYREL) 50 mg PO HS #0 tabs 06/06/12 03/13/25 History Amlodipine (Norvasc) 5 mg PO DAILY #0 tabs 09/17/17 03/13/25 History CALCIUM CARBONATE-VITAMIN D (OSCAL 1 tab PO BID ##0 09/17/17 03/13/25 History 500/200 D-3) LOSARTAN POTASSIUM (COZAAR) 25 mg PO DAILY #0 tabs 09/17/17 03/13/25 History MIRTAZAPINE (REMERON) 60 mg PO HS #0 tabs 09/17/17 03/13/25 History alprazolam 0.25 mg tablet 0.25 mg PO BID 10/09/23 03/13/25 History multivitamin 1 tab PO DAILY 10/09/23 03/13/25 History Past Med/Surg History Problem List (Updated 03/13/25 @ 20:58 by Steve Saldivar MD) Colonic diverticular abscess (Acute) Nausea (Acute) Leukocytosis (Acute) Abdominal pain, lower (Acute) Family history of Alzheimer's disease Vitamin D deficiency HTN (hypertension) Osteoporosis Dyslipidemia Bipolar disorder Abnormal brain MRI Vertigo Medical History (Updated 03/13/25 @ 20:58 by Steve Saldivar MD) Benign neoplasm of colon Surgical History (Updated 10/09/23 @ 14:43 by Mendy Lazaro) Hx of colonoscopy History of tonsillectomy and adenoidectomy Family History (Updated 10/09/23 @ 14:45 by Mendy Lazaro) Mother Alzheimer disease Grandmother (Maternal) Cancer Aunt Cancer Sister Depression Social History (Updated 10/09/23 @ 14:46 by Mendy Lazaro) Smoking Status: Former smoker Smoking End Date: Teenager; Do You Dip or Chew Tobacco: No; Hx Alcohol Use: No Hx Substance Use: No Preferred Language: Serbian Double Needle Operator Required: No Beliefs That Will Affect Care: None marital status: Current Living Situation: Alone Feels Safe at Home: Yes Assistive Devices: Glasses Review of Systems Review of Systems: All systems reviewed & are unremarkable except as noted in HPI & below Physical Exam Physical Exam: General- Not in distress Head- atraumatic Eyes- PERRL. ENT- oropharynx clear Neck- supple, no JVD. Lungs- clear to auscultation no wheezing or crackles Heart- regular rhythm; no murmur, no gallop. Abdomen- normal bowel sounds, soft, tenderness in LLQ , no guarding, no distension Extremities- mild pretibial edema present , no erythema seen Neuro- alert, oriented PERRL, no facial palsy; no dysarthria; moves extremities Results & Data Results & Data Vital Signs (Past 12 Hours) Vital Signs Temp Pulse Pulse Resp BP BP Pulse Ox 03/13/25 19:27 103 H 17 135/76 90 03/13/25 18:27 93 03/13/25 18:23 115 H 03/13/25 17:38 36.8 C 116 H 20 152/75 H 95 O2 Del Method 03/13/25 19:27 Room Air 03/13/25 18:27 Room Air 03/13/25 18:23 03/13/25 17:38 Room Air Diagnostic Findings Laboratory Results WBC 28.04 K/ul (4.8-10.8) H 03/13/25 18:04 RBC 5.10 M/uL (4.20-5.40) 03/13/25 18:04 Hgb 14.6 g/dl (12.0-16.0) 03/13/25 18:04 Hct 43.5 % (37.0-47.0) 03/13/25 18:04 MCV 85.3 fL (80.0-100.0) 03/13/25 18:04 MCH 28.6 pg (25.0-34.0) 03/13/25 18:04 MCHC 33.6 g/dL (32.0-36.0) 03/13/25 18:04 RDW Std Deviation 40.9 fL (36.4-46.3) 03/13/25 18:04 RDW Coeff of Doe 13.2 % (11.5-14.5) 03/13/25 18:04 Plt Count 254 K/uL (130-400) 03/13/25 18:04 MPV 9.3 fL (9.4-12.4) L 03/13/25 18:04 Immature Gran % (Auto) 1.1 % 03/13/25 18:04 Neut % (Auto) 90.0 % 03/13/25 18:04 Lymph % (Auto) 5.0 % 03/13/25 18:04 [place] % (Auto) 3.6 % 03/13/25 18:04 Eos % (Auto) 0.1 % 03/13/25 18:04 Baso % (Auto) 0.2 % 03/13/25 18:04 Neut # (Auto) 25.27 K/uL (1.40-6.50) H 03/13/25 18:04 Lymph # (Auto) 1.39 K/uL (1.20-3.40) 03/13/25 18:04 [place] # (Auto) 1.00 K/uL (0.11-0.59) H 03/13/25 18:04 Eos # (Auto) 0.02 K/uL (0.00-0.50) 03/13/25 18:04 Baso # (Auto) 0.06 K/uL (0.00-0.20) 03/13/25 18:04 Immature Gran # (Auto) 0.30 K/uL (0.01-0.20) H 03/13/25 18:04 Sodium 136 mmol/L (136-145) 03/13/25 18:04 Potassium 3.9 mmol/L (3.5-5.1) 03/13/25 18:04 Chloride 104 mmol/L (98-107) 03/13/25 18:04 Carbon Dioxide 25 mmol/L (21-32) 03/13/25 18:04 Anion Gap 7 (3-11) 03/13/25 18:04 BUN 15 mg/dl (6-23) 03/13/25 18:04 Creatinine 0.88 mg/dl (0.6-1.2) 03/13/25 18:04 Est Cr Clr Drug Dosing 66.9 ml/min 03/13/25 18:04 eGFR 71.54 03/13/25 18:04 BUN/Creatinine Ratio 17.0 (10-20) 03/13/25 18:04 Glucose 136 mg/dl (70-99(Fasting)) H 03/13/25 18:04 Calcium 9.5 mg/dl (8.6-10.3) 03/13/25 18:04 Total Bilirubin 1.3 mg/dl (0.2-1.0) H 03/13/25 18:04 AST 19 U/L (13-39) 03/13/25 18:04 ALT 18 U/L (7-52) 03/13/25 18:04 Alkaline Phosphatase 96 U/L (34-104) 03/13/25 18:04 Total Protein 7.6 gm/dl (6.0-8.3) 03/13/25 18:04 Albumin 4.4 gm/dl (3.4-5.0) 03/13/25 18:04 Globulin 3.2 gm/dl (2.5-4.0) 03/13/25 18:04 Albumin/Globulin Ratio 1.4 (0.9-2) 03/13/25 18:04 Lipase 21 U/L (11-82) 03/13/25 18:04 Urine Color Dark Yellow 03/13/25 18:20 Urine Appearance Clear (Clear) 03/13/25 18:20 Urine pH 6.0 (4.5-7.5) 03/13/25 18:20 Ur Specific [place] 1.026 (1.000-1.030) 03/13/25 18:20 Urine Protein 2+ (Negative) H 03/13/25 18:20 Urine Glucose (UA) Negative (Negative) 03/13/25 18:20 Urine Ketones 1+ (Negative) H 03/13/25 18:20 Urine Blood 2+ (Negative) H 03/13/25 18:20 Urine Nitrite Negative (Negative) 03/13/25 18:20 Urine Bilirubin Negative (Negative) 03/13/25 18:20 Urine Urobilinogen Negative (Negative) 03/13/25 18:20 Ur Leukocyte Esterase 2+ (Negative) H 03/13/25 18:20 Urine WBC (Auto) 21-50 /hpf (0-5) H 03/13/25 18:20 Urine RBC (Auto) 11-20 /hpf (0-2) H 03/13/25 18:20 U Hyaline Cast (Auto) 0-2 /lpf (0-2) 03/13/25 18:20 U Epithel Cells (Auto) 6-10 /hpf (0-2) H 03/13/25 18:20 Urine Bacteria (Auto) 1+ (None Seen) H 03/13/25 18:20 SARS-CoV-2 (PCR) NEGATIVE (Negative) 03/13/25 18:00 Influenza Type A (PCR) Negative (Neg) 03/13/25 18:00 Influenza Type B (PCR) Negative (Neg) 03/13/25 18:00 RSV (RT-PCR) Negative (Neg) 03/13/25 18:00 Impressions Abdomen/Pelvis CT 03/13/25 18:08 EXAM: CT abd pelvis wo con CLINICAL HISTORY: Lower abdominal pain, hx of diverticulitis TECHNIQUE: Non-contrast CT of the abdomen and pelvis was performed, with the following protocol: axial images, and reconstructed coronal and sagittal images. No intravenous contrast was administered. One of the following dose reduction techniques was utilized for this exam: Automated exposure control, adjustment of the mA and/or kV according to patient size, and use of iterative reconstruction. DLP: 1275.80 mGy-cm. COMPARISON: No prior studies available for comparison. FINDINGS: Abdomen: Liver: Normal in size, shape, and density. No focal lesions, cysts, or masses were identified. Gallbladder and Biliary System: The gallbladder is normal in size and shape. No wall thickening, pericholecystic fluid, or gallstones were identified. Pancreas: Pancreatic head, body, and tail are visualized and appear normal in size and density. No pancreatic masses or calcifications were noted. Spleen: Normal in size, shape, and density. No splenic lesions or masses were identified. Kidneys and Adrenal Glands: Both kidneys are normal in size, shape, and position. Cortical thickness is within normal limits. No renal calculi or hydronephrosis. Adrenal glands are unremarkable. Appendix: The appendix is normal in size without ade-appendiceal fat stranding and without an appendicolith. No evidence of appendiceal abscess or perforation. Pelvis: Urinary Bladder: Normal in contour and wall thickness. No intraluminal lesions. Uterus: Normal in size and contour. No masses or abnormal thickening. Ovaries: Not well visualized but no gross abnormalities noted. Vagina: Normal in contour and wall thickness. Cervix: No evidence of mass or abnormal thickening. Bowel: The visualized bowel loops are normal in caliber. No evidence of bowel obstruction. Diffuse colonic diverticulosis. Gas-containing area in between the uterine fundus and sigmoid colon measuring 4.1 x 5.1 cm with perifocal fat stranding, suggestive of a diverticular abscess (Hinchey stage Ib). Clinical and laboratory correlation are advised as well as follow up. It is inseparable from the left gonadal vein, couldn't exclude the possibility of thrombophlebitis. Further assessment with contrast study may be recommended. Multiple locoregional reactive mesocolic lymph nodes are seen, largest 1.1 x 1.3 cm. Thickening of left peritoneal reflections also noted. Multiple reactive left external iliac lymph nodes. Two large uncomplicated duodenal diverticula, measuring 6.5 x 6.4 cm and 5 x 5.7 cm. Bones and Soft Tissues: Moderate (grade 2) spondylolisthesis of L5 over S1 Diffuse osteoporotic and spondylotic changes. T11 old compression vertebral fracture. IMPRESSION: 1. Diffuse colonic diverticulosis. 2. Gas-containing area in between the uterine fundus and sigmoid colon measuring 4.1 x 5.1 cm with perifocal fat stranding, suggestive of a diverticular abscess (Hinchey stage Ib). Clinical and laboratory correlation are advised as well as follow up. 3. It is inseparable from the left gonadal vein, couldn't exclude the possibility of thrombophlebitis. Further assessment with contrast study may be recommended. 4. Multiple locoregional reactive mesocolic lymph nodes are seen, largest 1.1 x 1.3 cm. Thickening of left peritoneal reflections also noted. 5. Multiple reactive left external iliac lymph nodes. 6. Two large uncomplicated duodenal diverticula, measuring 6.5 x 6.4 cm and 5 x 5.7 cm. Electronically signed by Rojelio Maravilla 03-13-2025 8:42 PM ECG Additional Comments: CC. Sinus tachycardia 113. QTc 449. Code Status & VTE Plan VTE Prophylaxis Plan VTE Prophylaxis will be ordered: Yes
[2025-03-13] MEDS: HYDROmorphone INJ 0.5 MG/0.5 ML SYR IV STA (22:08)
[2025-03-13] MEDS: DAPTOmycin 600 MG in SYRINGE 0 ML IV ONE (22:26)
[2025-03-13] MEDS: OPTIRAY 320 125ml IV ONE (23:21)
[2025-03-13] MEDS ORDERED: NITROGLYCERIN SL 0.4 MG/TAB TAB SL PRN (23:39)
[2025-03-14] MEDS: SODIUM CHLORIDE 0.9% 1,000 ML IV SCH (00:36)
[2025-03-14] MEDS: PIPERACILLIN/TAZOBACTAM 4.5 GM/100 ML BAG IV SCH (01:16)
--- NOTE | 2025-03-14 02:04 | CT Scan Report ---
Exam(s): CT ABDOMEN + PELVIS With Contrast IV Amt: 118 cc opti 320 EXAM: CT Abdomen and Pelvis With Intravenous Contrast CLINICAL HISTORY: Reason for exam: left gonadal vein thrombosis. TECHNIQUE: Axial computed tomography images of the abdomen and pelvis with intravenous contrast. CTDI is 26.01 mGy and DLP is 1334.24 mGy-cm. Automated exposure control was utilized for the study. A dose lowering technique was utilized adhering to the principles of ALARA. CONTRAST: Patient received 118 cc opti 320 of IV contrast COMPARISON: CT abdomen pelvis without contrast dated 03/13/2025 FINDINGS: Lung bases: Bibasilar atelectasis greater on the right side and increased since the prior. ABDOMEN: Liver: Unremarkable. No mass. Gallbladder and bile ducts: Unremarkable. No calcified stones. No ductal dilation. Pancreas: Unremarkable. No mass. No ductal dilation. Spleen: Unremarkable. No splenomegaly. Adrenals: Unremarkable. No mass. Kidneys and ureters: Unremarkable. No solid mass. No hydronephrosis. Stomach and bowel: Diffuse colonic diverticulosis. Sigmoid wall thickening and mild surrounding fat stranding. Approximately 4 x 3 x 3 cm rim-enhancing fluid collection with air-fluid level between the inferior portion of the sigmoid colon and the uterus. Duodenal diverticula. No obstruction. PELVIS: Appendix: No findings to suggest acute appendicitis. Bladder: Unremarkable. No mass. Reproductive: The left ovarian vein is opacified and appears patent. ABDOMEN and PELVIS: Intraperitoneal space: Unremarkable. No free air. No significant fluid collection. Bones/joints: Old T11 compression deformity. Grade 2 spondylolisthesis at L5-S1. No dislocation. Soft tissues: Unremarkable. Vasculature: Moderate aortoiliac atherosclerotic calcifications. Lymph nodes: Unremarkable. No enlarged lymph nodes. IMPRESSION: 1. Approximately 4 x 3 x 3 cm rim-enhancing fluid collection with air- fluid level between the inferior portion of the sigmoid colon and the uterus. Likely represents sigmoid diverticulitis and diverticular abscess. Consider follow-up to exclude malignancy. 2. The left ovarian vein is opacified and appears patent. Electronically signed by: Dianne Duong M.D. 03/14/25 02:03 AM
[2025-03-14 06:05] LABS: Basophils # (auto) 0.03 K/uL (0.00-0.20); Basophils % (auto) 0.1 %; Eosinophils # (auto) 0.02 K/uL (0.00-0.50); Eosinophils % (auto) 0.1 %; Hematocrit (blood only) 37.7 % (37.0-47.0); Hemoglobin 12.3 g/dl (12.0-16.0); Immature Granulocytes # (auto) 0.39 K/uL (0.01-0.20); Immature Granulocytes % (auto) 1.9 %; Lymphocytes # (auto) 1.19 K/uL (1.20-3.40); Lymphocytes % (auto) 5.8 %; Mean Corpuscular Hemoglobin 28.6 pg (25.0-34.0); Mean Corpuscular Hgb Conc 32.6 g/dL (32.0-36.0); Mean Corpuscular Volume 87.7 fL (80.0-100.0); Mean Platelet Volume 9.5 fL (9.4-12.4); Monocytes # (auto) 0.96 K/uL (0.11-0.59); Monocytes % (auto) 4.7 %; Neutrophils # (auto) 17.95 K/uL (1.40-6.50); Neutrophils % (auto) 87.4 %; Platelet Count 188 K/uL (130-400); RDW Coefficient of Variation 13.3 % (11.5-14.5); RDW Standard Deviation 42.8 fL (36.4-46.3); White Blood Count 20.54 K/ul (4.8-10.8)
[2025-03-14 06:22] LABS: Albumin Level 3.4 gm/dl (3.4-5.0); BUN Creatinine Ratio 15.2 (10-20); Bilirubin Direct 0.4 mg/dl (0-0.2); Calcium 8.2 mg/dl (8.6-10.3); Creatinine Clr Calc Pharmacy 70.2 ml/min; Total Protein 6.1 gm/dl (6.0-8.3)
[2025-03-14] MEDS: MULTIVITAMIN TAB PO SCH (08:21)
[2025-03-14] MEDS: ALPRAZolam 0.25 MG TABLET PO SCH (08:23)
[2025-03-14] MEDS: HYDROmorphone INJ 0.5 MG/0.5 ML SYR IV PRN ×2 (09:12→22:47)
--- NOTE | 2025-03-14 11:33 | Hospitalist Progress Note ---
Date of Service March 14, 2025 Assessment & Plan (1) Colonic diverticular abscess: Plan: 69-year-old female with past medical history significant for dyslipidemia, hypertension, vitamin D deficiency, bipolar affective disorder and depression presents with left-sided abdominal pain. Patient says left-sided abdominal pain started Monday morning 3:30 AM. Pain is 9/10 in severity. Associated with dry heaves. Having normal bowel movements. Normal micturition. Denies any chest pain. No shortness of breath. No cough. Has some runny nose. No sore throat. No earaches. Slightly tachycardic. Blood pressure is okay. She had temperature at home. Currently afebrile. History of diverticulitis several years ago. Colon diverticular abscess CT scan showing 4.1 x 5.1 cm diverticular abscess Multiple locoregional lymph nodes largest 1.1 x1.3 cm. Multiple left external iliac lymph nodes Er started on IV Zosyn and Dapto which will be continued NPO,IV fluids and symptomatic medications for pain and nausea vomiting Surgical consult for further recommendations Duodenal diverticula 2 large uncomplicated duodenal diverticula measuring 6.5 x 6.4 cm Asymptomatic Further recommendation from surgeon awaited Possible left gonadal vein thrombophlebitis Will follow CT venogram abdomen pelvis- CT venogram did not show any evidence of thrombosis Hypertension Will hold amlodipine and losartan for now Blood pressure remains stable Hyperlipidemia Hold statin while on Dapto Bipolar disorder and depression Continue home medications Follow lithium levels DVT prophylaxis SCDs for now Disposition Med/telemetry Full code. Admission and Anticipated Discharge Date Admission Date: March 13, 2025 Subjective 03/14/2025 The patient was seen and examined in medical telemetry unit She was admitted with left-sided abdominal pain and fever for the last 2 days Has been feeling little better but he still has significant pain in the left sided abdomen Denies any epigastric pain and denies any nausea and/or vomiting No more fever no chills Review of Systems Review of Systems: All systems reviewed and are unremarkable except as noted below Physical Exam Physical Exam: Lying in bed with some distress due to abdominal discomfort and distention Constitutional: well developed, well nourished, + ill appearing and + obese Eyes: PERRL, conjunctivae normal, anicteric sclerae ENMT: external ear and nose normal, oropharynx normal Neck: trachea midline, no thyromegaly Respiratory: no respiratory distress Auscultation: lungs clear to auscultation bilaterally Cardiovascular: Rate/Rhythm: regular rate and regular rhythm; not tachycardic Heart Sounds: normal S1 and normal S2; no murmur Extremities: no edema Gastrointestinal (Abdomen): Inspection/Auscultation: + abdomen distended; + abnormal bowel sounds Percussion/Palpation: + abdomen tender (Mostly of the left side of the abdomen with some guarding and rigidity) and abdomen soft Musculoskeletal: No acute arthritis involving any of the joint Neurologic: normal touch/pain/proprioception and moves all extremities; no fo davie motor deficits Psychiatric: A+Ox3, euthymic affect Lymphatic: no cervical or axillary lymphadenopathy Results & Data Results & Data Vital Signs (Past 12 Hours) Vital Signs Temp Pulse Pulse Pulse Resp BP Pulse Ox 03/14/25 08:12 36.8 C 94 H 20 114/72 91 03/14/25 05:39 94 H 03/14/25 04:03 36.7 C 102 H 16 113/72 91 03/13/25 23:40 105 H 03/13/25 23:33 03/13/25 23:33 36.8 C 108 H 18 144/81 H 91 O2 Del Method O2 Flow Rate 03/14/25 08:12 Nasal Cannula 03/14/25 05:39 03/14/25 04:03 Room Air 03/13/25 23:40 03/13/25 23:33 Nasal Cannula 2 03/13/25 23:33 Nasal Cannula 2 Laboratory Results Short CBC 03/13/25 03/14/25 Range/Units 18:04 05:27 WBC 28.04 H 20.54 H (4.8-10.8) K/ul Hgb 14.6 12.3 (12.0-16.0) g/dl Hct 43.5 37.7 (37.0-47.0) % Plt Count 254 188 (130-400) K/uL BMP 03/13/25 03/14/25 18:04 05:27 Sodium 136 137 Potassium 3.9 4.0 Chloride 104 109 H Carbon Dioxide 25 23 BUN 15 12 Creatinine 0.88 0.79 Glucose 136 H 131 H Calcium 9.5 8.2 L Liver Function 03/13/25 03/14/25 Range/Units 18:04 05:27 Total Bilirubin 1.3 H 1.0 (0.2-1.0) mg/dl Direct Bilirubin 0.4 H (0-0.2) mg/dl AST 19 12 L (13-39) U/L ALT 18 13 (7-52) U/L Alkaline Phosphatase 96 81 (34-104) U/L Albumin 4.4 3.4 (3.4-5.0) gm/dl Urine 03/13/25 Range/Units 18:20 Urine Color Dark Yellow Urine Appearance Clear (Clear) Urine pH 6.0 (4.5-7.5) Ur Specific [place] 1.026 (1.000-1.030) Urine Protein 2+ H (Negative) Urine Glucose (UA) Negative (Negative) Medications Administered Current Inpatient Medications Alprazolam (Alprazolam 0.25 Mg Tablet) 0.25 mg PO BID [facility] Stop: 04/13/25 08:59 Last Admin: 03/14/25 08:23 Dose: 0.25 mg Hydromorphone HCl (Hydromorphone Inj 0.5 Mg/0.5 Ml Syr) 0.25 mg IV Q6H PRN PRN Reason: Moderate Pain (Scale 4, 5, 6) Stop: 03/27/25 23:38 Last Admin: 03/14/25 09:12 Dose: 0.25 mg Hydromorphone HCl (Hydromorphone Inj 0.5 Mg/0.5 Ml Syr) 0.5 mg IV Q6H PRN PRN Reason: Severe Pain (Scale 7, 8, 9,10) Stop: 03/27/25 23:38 Piperacillin Sod/Tazobactam Sod (Zosyn) 4.5 gm in 100 mls @ 25 mls/hr IV Q8H [facility]; Protocol Stop: 03/24/25 00:59 Last Admin: 03/14/25 08:28 Dose: 25 mls/hr Daptomycin 500 mg/ Syringe 10 mls @ 5 mls/min IV Q24H [facility]; Protocol Stop: 03/16/25 20:59 Sodium Chloride (Nss) 1,000 mls @ 125 mls/hr IV .Q8H [facility] Stop: 03/16/25 23:38 Last Admin: 03/14/25 08:21 Dose: 125 mls/hr [place] Carbonate ([place] Carbonate 450 Mg Tabcr) 450 mg PO HS [facility] Stop: 04/13/25 20:59 Mirtazapine (Mirtazapine Tab 15 Mg Tab) 60 mg PO HS [facility] Stop: 04/13/25 20:59 Multivitamins (Multivitamin Tab) 1 tab PO DAILY [facility] Stop: 04/13/25 08:59 Last Admin: 03/14/25 08:21 Dose: 1 tab Nitroglycerin (Nitroglycerin Sl 0.4 Mg/Tab Tab) 0.4 mg SL Q5M PRN PRN Reason: Chest Pain Stop: 04/12/25 23:38 Olanzapine (Olanzapine 5 Mg Tablet) 5 mg PO HS [facility] Stop: 04/13/25 20:59 Ondansetron HCl (Ondansetron Inj 2 Mg/Ml 2 Ml Vial) 4 mg IV Q6H PRN PRN Reason: Nausea Stop: 04/12/25 23:38 Trazodone HCl (Trazodone Hcl 50 Mg Tab) 50 mg PO HS [facility] Stop: 04/13/25 20:59
--- NOTE | 2025-03-14 11:59 | Surgery Consultation ---
Date of Consultation March 14, 2025 Assessment & Plan (1) Colonic diverticular abscess: Patient with acute onset of abdominal pain early Monday morning with associated nausea and dry heaves who was found to have diverticulitis with a 4x5cm abscess. The patient was seen and evaluated this morning at bedside and she is nontoxic appearing. From a surgical standpoint recommend the following: -Patient with no signs of acute abdomen that would warrant emergent surgical intervention. Will plan to treat conservatively for now. However I did discuss with the patient that if her clinical picture would worsen there would be a possibility of needed to undergo surgical intervention which could potentially include a temporary colostomy. -For now keep patient NPO, IV hydration, antiemetics, and pain medication as needed -We did reach out to the IR team about possible abscess drainage. Unfortunately due to the placement of the abscess there is no safe window at this time. For now recommend continuing broad spectrum IV antibiotics. Patient may require repeat CT in a few days to evaluate progression of abscess -Continue to trend WBC and temps -I also did discuss with the patient that it is recommended she undergo a colonoscopy roughly 6-8 weeks after discharge -Medical management per primary team, surgery will continue to closely follow. Supervising Physician Co-Signing Physician Notes This case was discussed with the surgical PA, I agree with this plan History of Present Illness Reason for Consultation: Acute diverticulitis with abscess History of Present Illness Patient is a 69-year-old female who presented to the emergency room early this morning for complaints of left-sided abdominal pain. The patient states her pain started multi slide machine tender Monday around 3:30AM but originally thought it was from the flu. She did have decreased appetite along with nausea and dry heaves associated with her pain. The patient states she tried to manage her symptoms at home however the pain was not improving which ultimately led her to come into the ER to be evaluated. States her last bowel movement was Monday and was normal in nature. The patient was worked up and was found to have an elevated WBC at [address] findings concerning for diverticulitis with a 4x5cm abscess. The patient was seen and evaluated this morning at bedside. She is resting comfortably in bed, VSS and afebrile, and is nontoxic appearing. The patient states she is still having some abdominal pain in the LLQ however this has improved after medication. The patient denies any ongoing nausea or vomiting at this time. Her WBC this morning is slightly downtrending from 28 to 20 and her lactic acid level was WNL. The patient states that she did have diverticulitis in the past however she didn't need any hospitalization/surgical intervention. She has previously done Cologuard but otherwise has never undergone a colonoscopy. She also denies any previous abdominal surgeries. Allergies Allergy/AdvReac Type Severity Reaction Status Date / Time lisinopril Allergy Verified 03/13/25 21:03 Home Medications Medication Instructions Recorded Confirmed Type LITHIUM CARBONATE ER (LITHOBID EXT 450 mg PO HS #0 tabs 06/06/12 03/13/25 History REL) OLANZAPINE (ZYPREXA) 5 mg PO HS #0 tabs 06/06/12 03/13/25 History SIMVASTATIN (ZOCOR) 20 mg PO QPM #0 tabs 06/06/12 03/13/25 History TRAZODONE HCL (DESYREL) 50 mg PO HS #0 tabs 06/06/12 03/13/25 History Amlodipine (Norvasc) 5 mg PO DAILY #0 tabs 09/17/17 03/13/25 History CALCIUM CARBONATE-VITAMIN D (OSCAL 1 tab PO BID ##0 09/17/17 03/13/25 History 500/200 D-3) LOSARTAN POTASSIUM (COZAAR) 25 mg PO DAILY #0 tabs 09/17/17 03/13/25 History MIRTAZAPINE (REMERON) 60 mg PO HS #0 tabs 09/17/17 03/13/25 History alprazolam 0.25 mg tablet 0.25 mg PO BID 10/09/23 03/13/25 History multivitamin 1 tab PO DAILY 10/09/23 03/13/25 History Patient History Medical History (Updated 03/15/25 @ 13:51 by Guillermo Mckinney DO) Benign neoplasm of colon Surgical History (Updated 10/09/23 @ 14:43 by Mendy Lazaro) Hx of colonoscopy History of tonsillectomy and adenoidectomy Family History (Updated 10/09/23 @ 14:45 by Mendy Lazaro) Mother Alzheimer disease Grandmother (Maternal) Cancer Aunt Cancer Sister Depression Social History (Updated 10/09/23 @ 14:46 by Mendy Lazaro) Smoking Status: Former smoker Smoking End Date: Teenager; Do You Dip or Chew Tobacco: No; Hx Alcohol Use: No Hx Substance Use: No Preferred Language: Kazakh Communication Ability: 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 Beliefs That Will Affect Care: None marital status: Current Living Situation: Alone Feels Safe at Home: Yes Assistive Devices: None Review of Systems Constitutional: + fever; no chills and no weakness Respiratory: no cough and no dyspnea Cardiovascular: no chest pain, no palpitations and no syncope Gastrointestinal: + abdominal pain and + nausea Genitourinary: no dysuria, no urinary hesitancy and no hematuria Physical Exam Constitutional: WD/WN, vitals as above Respiratory: normal respiratory effort, lungs clear to auscultation Cardiovascular: RRR, no murmur, no edema Gastrointestinal (Abdomen): Abdomen soft, nondistended, +TTP in the LLQ without any rebound or guarding. Skin: no rashes, warm and dry Results & Data Vital Signs (Past 12 Hours) Vital Signs Temp Pulse Pulse Pulse Resp BP Pulse Ox 03/14/25 08:12 36.8 C 94 H 20 114/72 91 03/14/25 05:39 94 H 03/14/25 04:03 36.7 C 102 H 16 113/72 91 03/13/25 23:40 105 H 03/13/25 23:33 03/13/25 23:33 36.8 C 108 H 18 144/81 H 91 O2 Del Method O2 Flow Rate 03/14/25 08:12 Nasal Cannula 03/14/25 05:39 03/14/25 04:03 Room Air 03/13/25 23:40 03/13/25 23:33 Nasal Cannula 2 03/13/25 23:33 Nasal Cannula 2 Diagnostic Findings EXAM: CT abd pelvis wo con ADDENDUM: The report was faxed at [phone] at 8:18 PM, 03/13/2025 Electronically signed by Rojelio Maravilla 03-13-2025 10:01 PM ADDENDUM END ADDENDUM Addendum Report EXAM: CT abd pelvis wo con ADDENDUM: The report was faxed at [phone] at 8:18 PM, 03/13/2025 Electronically signed by Rojelio Maravilla 03-13-2025 10:01 PM ADDENDUM END EXAM: CT abd pelvis wo con CLINICAL HISTORY: Lower abdominal pain, hx of diverticulitis TECHNIQUE: Non-contrast CT of the abdomen and pelvis was performed, with the following protocol: axial images, and reconstructed coronal and sagittal images. No intravenous contrast was administered. One of the following dose reduction techniques was utilized for this exam: Automated exposure control, adjustment of the mA and/or kV according to patient size, and use of iterative reconstruction. DLP: 1275.80 mGy-cm. COMPARISON: No prior studies available for comparison. FINDINGS: Abdomen: Liver: Normal in size, shape, and density. No focal lesions, cysts, or masses were identified. Gallbladder and Biliary System: The gallbladder is normal in size and shape. No wall thickening, pericholecystic fluid, or gallstones were identified. Pancreas: Pancreatic head, body, and tail are visualized and appear normal in size and density. No pancreatic masses or calcifications were noted. Spleen: Normal in size, shape, and density. No splenic lesions or masses were identified. Kidneys and Adrenal Glands: Both kidneys are normal in size, shape, and position. Cortical thickness is within normal limits. No renal calculi or hydronephrosis. Adrenal glands are unremarkable. Appendix: The appendix is normal in size without ade-appendiceal fat stranding and without an appendicolith. No evidence of appendiceal abscess or perforation. Pelvis: Urinary Bladder: Normal in contour and wall thickness. No intraluminal lesions. Uterus: Normal in size and contour. No masses or abnormal thickening. Ovaries: Not well visualized but no gross abnormalities noted. Vagina: Normal in contour and wall thickness. Cervix: No evidence of mass or abnormal thickening. Bowel: The visualized bowel loops are normal in caliber. No evidence of bowel obstruction. Diffuse colonic diverticulosis. Gas-containing area in between the uterine fundus and sigmoid colon measuring 4.1 x 5.1 cm with perifocal fat stranding, suggestive of a diverticular abscess (Hinchey stage Ib). Clinical and laboratory correlation are advised as well as follow up. It is inseparable from the left gonadal vein, couldn't exclude the possibility of thrombophlebitis. Further assessment with contrast study may be recommended. Multiple locoregional reactive mesocolic lymph nodes are seen, largest 1.1 x 1.3 cm. Thickening of left peritoneal reflections also noted. Multiple reactive left external iliac lymph nodes. Two large uncomplicated duodenal diverticula, measuring 6.5 x 6.4 cm and 5 x 5.7 cm. Bones and Soft Tissues: Moderate (grade 2) spondylolisthesis of L5 over S1 Diffuse osteoporotic and spondylotic changes. T11 old compression vertebral fracture. IMPRESSION: 1. Diffuse colonic diverticulosis. 2. Gas-containing area in between the uterine fundus and sigmoid colon measuring 4.1 x 5.1 cm with perifocal fat stranding, suggestive of a diverticular abscess (Hinchey stage Ib). Clinical and laboratory correlation are advised as well as follow up. 3. It is inseparable from the left gonadal vein, couldn't exclude the possibility of thrombophlebitis. Further assessment with contrast study may be recommended. 4. Multiple locoregional reactive mesocolic lymph nodes are seen, largest 1.1 x 1.3 cm. Thickening of left peritoneal reflections also noted. 5. Multiple reactive left external iliac lymph nodes. 6. Two large uncomplicated duodenal diverticula, measuring 6.5 x 6.4 cm and 5 x 5.7 cm. PG Care Time/CCT Total # of Minutes Spent Total Time Spent with Patient: Total time spent is greater than 50% in coordination of care (as documented) at patient's floor/unit and/or counseling patient: [place] [address] IN/OBS CONSULT LVL 2,35M Patient Type New Medical Decision Making Straight Forward Diagnoses Colonic diverticular abscess K57.20
[2025-03-14] MEDS: MIRTAZAPINE TAB 15 MG TAB PO SCH (21:37)
[2025-03-14] MEDS: LITHIUM CARBONATE 450 MG TABCR PO SCH (21:37)
[2025-03-14] MEDS: OLANZapine 5 MG TABLET PO SCH (21:37)
[2025-03-14] MEDS: traZODone HCL 50 MG TAB PO SCH (21:37)
[2025-03-14] MEDS: DAPTOmycin 500 MG in SYRINGE 0 ML IV SCH (21:42)
--- NOTE | 2025-03-14 22:37 | Electrocardiogram Report ---
Test Reason : Blood Pressure : */* mmHG Vent. Rate : 113 BPM Atrial Rate : 113 BPM P-R Int : 158 ms QRS Dur : 92 ms QT Int : 328 ms P-R-T Axes : 51 23 56 degrees QTcB Int : 449 ms Sinus tachycardia Nonspecific ST abnormality When compared with ECG of 06-Jun-2012 21:06, No significant change Confirmed by Noman Espinal ([id number]) on 03/14/2025 10:37:21 PM Referred By: REFERRED SELF Confirmed By: Noman Espinal
[2025-03-14] MEDS: ONDANSETRON INJ 2 MG/ML 2 ML VIAL IV PRN (22:52)
[2025-03-15 06:48] LABS: Basophils # (auto) 0.02 K/uL (0.00-0.20); Basophils % (auto) 0.1 %; Eosinophils # (auto) 0.13 K/uL (0.00-0.50); Eosinophils % (auto) 0.8 %; Hematocrit (blood only) 38.7 % (37.0-47.0); Hemoglobin 12.4 g/dl (12.0-16.0); Immature Granulocytes # (auto) 0.22 K/uL (0.01-0.20); Immature Granulocytes % (auto) 1.3 %; Lymphocytes # (auto) 1.34 K/uL (1.20-3.40); Lymphocytes % (auto) 8.1 %; Mean Corpuscular Hemoglobin 28.3 pg (25.0-34.0); Mean Corpuscular Volume 88.4 fL (80.0-100.0); Mean Platelet Volume 9.6 fL (9.4-12.4); Monocytes # (auto) 0.71 K/uL (0.11-0.59); Monocytes % (auto) 4.3 %; Neutrophils # (auto) 14.13 K/uL (1.40-6.50); Neutrophils % (auto) 85.4 %; Platelet Count 203 K/uL (130-400); RDW Coefficient of Variation 13.1 % (11.5-14.5); RDW Standard Deviation 42.6 fL (36.4-46.3); Red Blood Count 4.38 M/uL (4.20-5.40); White Blood Count 16.55 K/ul (4.8-10.8)
[2025-03-15 07:09] LABS: Albumin Globulin Ratio 1.1 (0.9-2); Albumin Level 3.3 gm/dl (3.4-5.0); BUN Creatinine Ratio 13.8 (10-20); Calcium 8.6 mg/dl (8.6-10.3); Creatinine Clr Calc Pharmacy 85.3 ml/min; Globulin 3.1 gm/dl (2.5-4.0); Magnesium 2.1 mg/dl (1.7-2.4); Potassium 3.8 mmol/L (3.5-5.1); Total Protein 6.4 gm/dl (6.0-8.3)
--- NOTE | 2025-03-15 11:29 | Hospitalist Progress Note ---
Date of Service March 15, 2025 Assessment & Plan (1) Colonic diverticular abscess: Plan: 69-year-old female with past medical history significant for dyslipidemia, hypertension, vitamin D deficiency, bipolar affective disorder and depression presents with left-sided abdominal pain. Patient says left-sided abdominal pain started Monday morning 3:30 AM. Pain is 9/10 in severity. Associated with dry heaves. Having normal bowel movements. Normal micturition. Denies any chest pain. No shortness of breath. No cough. Has some runny nose. No sore throat. No earaches. Slightly tachycardic. Blood pressure is okay. She had temperature at home. Currently afebrile. History of diverticulitis several years ago. Colon diverticular abscess CT scan showing 4.1 x 5.1 cm diverticular abscess Multiple locoregional lymph nodes largest 1.1 x1.3 cm. Multiple left external iliac lymph nodes Er started on IV Zosyn and Dapto which will be continued NPO,IV fluids and symptomatic medications for pain and nausea vomiting Surgical consult for further recommendations Has been feeling little better and is out of bed on a chair Bowel sounds remain sluggish and bowel is not moved yet Will continue current status as n.p.o. Duodenal diverticula 2 large uncomplicated duodenal diverticula measuring 6.5 x 6.4 cm Asymptomatic Further recommendation from surgeon awaited Possible left gonadal vein thrombophlebitis Will follow CT venogram abdomen pelvis- CT venogram did not show any evidence of thrombosis Hypertension Will hold amlodipine and losartan for now Blood pressure remains stable Hyperlipidemia Hold statin while on Dapto Bipolar disorder and depression Continue home medications Follow lithium levels DVT prophylaxis SCDs for now Disposition Med/telemetry Full code. Admission and Anticipated Discharge Date Admission Date: March 13, 2025 Subjective 03/14/2025 The patient was seen and examined in medical telemetry unit She was admitted with left-sided abdominal pain and fever for the last 2 days Has been feeling little better but he still has significant pain in the left sided abdomen Denies any epigastric pain and denies any nausea and/or vomiting No more fever no chills 03/15/2025 The patient was seen and examined in medical telemetry unit She has been feeling much better and is out of bed on a chair Denies any more abdominal pain, nausea and/or vomiting Bowel has not moved Review of Systems Review of Systems: All systems reviewed and are unremarkable except as noted below Physical Exam Physical Exam: Lying in bed with some distress due to abdominal discomfort and distention Constitutional: well developed, well nourished, + ill appearing and + obese Eyes: PERRL, conjunctivae normal, anicteric sclerae ENMT: external ear and nose normal, oropharynx normal Neck: trachea midline, no thyromegaly Respiratory: no respiratory distress Auscultation: lungs clear to auscultation bilaterally Cardiovascular: Rate/Rhythm: regular rate and regular rhythm; not tachycardic Heart Sounds: normal S1 and normal S2; no murmur Extremities: no edema Gastrointestinal (Abdomen): Inspection/Auscultation: + abdomen distended; + abnormal bowel sounds Percussion/Palpation: + abdomen tender (Mostly of the left side of the abdomen with some guarding and rigidity) and abdomen soft Neurologic: normal touch/pain/proprioception and moves all extremities; no focal motor deficits Psychiatric: A+Ox3, euthymic affect Lymphatic: no cervical or axillary lymphadenopathy Results & Data Results & Data Vital Signs (Past 12 Hours) Vital Signs Temp Pulse Resp BP Pulse Ox O2 Del Method O2 Flow Rate 03/15/25 07:30 37.2 C 103 H 18 129/80 91 Nasal Cannula 3 03/15/25 03:53 37.0 C 102 H 20 137/80 92 Nasal Cannula 2 03/15/25 00:06 37.0 C 87 20 121/74 92 Nasal Cannula 2 Laboratory Results Short CBC 03/15/25 Range/Units 06:10 WBC 16.55 H (4.8-10.8) K/ul Hgb 12.4 (12.0-16.0) g/dl Hct 38.7 (37.0-47.0) % Plt Count 203 (130-400) K/uL BMP 03/15/25 06:10 Sodium 138 Potassium 3.8 Chloride 111 H Carbon Dioxide 21 BUN 9 Creatinine 0.65 Glucose 104 H Calcium 8.6 Liver Function 03/15/25 Range/Units 06:10 Total Bilirubin 1.0 (0.2-1.0) mg/dl AST 27 (13-39) U/L ALT 24 (7-52) U/L Alkaline Phosphatase 175 H D (34-104) U/L Albumin 3.3 L (3.4-5.0) gm/dl Medications Administered Current Inpatient Medications Alprazolam (Alprazolam 0.25 Mg Tablet) 0.25 mg PO BID [facility] Stop: 04/13/25 08:59 Last Admin: 03/15/25 09:07 Dose: 0.25 mg Hydromorphone HCl (Hydromorphone Inj 0.5 Mg/0.5 Ml Syr) 0.25 mg IV Q6H PRN PRN Reason: Moderate Pain (Scale 4, 5, 6) Stop: 03/27/25 23:38 Last Admin: 03/14/25 16:37 Dose: 0.25 mg Hydromorphone HCl (Hydromorphone Inj 0.5 Mg/0.5 Ml Syr) 0.5 mg IV Q6H PRN PRN Reason: Severe Pain (Scale 7, 8, 9,10) Stop: 03/27/25 23:38 Last Admin: 03/14/25 22:47 Dose: 0.5 mg Piperacillin Sod/Tazobactam Sod (Zosyn) 4.5 gm in 100 mls @ 25 mls/hr IV Q8H [facility]; Protocol Stop: 03/24/25 00:59 Last Admin: 03/15/25 09:07 Dose: 25 mls/hr Daptomycin 500 mg/ Syringe 10 mls @ 5 mls/min IV Q24H [facility]; Protocol Stop: 03/16/25 20:59 Last Admin: 03/14/25 21:42 Dose: 5 mls/min Sodium Chloride (Nss) 1,000 mls @ 125 mls/hr IV .Q8H [facility] Stop: 03/16/25 23:38 Last Admin: 03/15/25 09:08 Dose: 125 mls/hr [place] Carbonate ([place] Carbonate 450 Mg Tabcr) 450 mg PO [facility] Stop: 04/13/25 20:59 Last Admin: 03/14/25 21:37 Dose: 450 mg Mirtazapine (Mirtazapine Tab 15 Mg Tab) 60 mg PO [facility] Stop: 04/13/25 20:59 Last Admin: 03/14/25 21:37 Dose: 60 mg Multivitamins (Multivitamin Tab) 1 tab PO DAILY [facility] Stop: 04/13/25 08:59 Last Admin: 03/15/25 09:07 Dose: 1 tab Nitroglycerin (Nitroglycerin Sl 0.4 Mg/Tab Tab) 0.4 mg SL Q5M PRN PRN Reason: Chest Pain Stop: 04/12/25 23:38 Olanzapine (Olanzapine 5 Mg Tablet) 5 mg PO HS [facility] Stop: 04/13/25 20:59 Last Admin: 03/14/25 21:37 Dose: 5 mg Ondansetron HCl (Ondansetron Inj 2 Mg/Ml 2 Ml Vial) 4 mg IV Q6H PRN PRN Reason: Nausea Stop: 04/12/25 23:38 Last Admin: 03/14/25 22:52 Dose: 4 mg Trazodone HCl (Trazodone Hcl 50 Mg Tab) 50 mg PO HS [facility] Stop: 04/13/25 20:59 Last Admin: 03/14/25 21:37 Dose: 50 mg
--- NOTE | 2025-03-15 13:40 | Neurology Consultation ---
Date of Consultation March 15, 2025 Assessment & Plan (1) Parkinsonism: Plan A 69 yo F w mild parkinsonism in the setting of bipolar medications. Possible secondary due to medications. Gait was not evaluated. would defer on any neuro work up at this time. Follow up w Neuro PRN for now. History of Present Illness Reason for Consultation: Concern for PD Requesting Physician: Dr. Bass Attending Physician: Juan Antonio Bass MD History of Present Illness A 69 yo F w depression and bipiolar admitted w abdominal pain and found to have colonic abscess. Neurology consulted for concern for PD. Has intermittent tremor but not bothersome. NO walker. No walking problems. No vivid dreams. No change in taste or smell. Allergies Allergy/AdvReac Type Severity Reaction Status Date / Time lisinopril Allergy Verified 03/13/25 21:03 Home Medications Medication Instructions Recorded Confirmed Type LITHIUM CARBONATE ER (LITHOBID EXT 450 mg PO HS #0 tabs 06/06/12 03/13/25 History REL) OLANZAPINE (ZYPREXA) 5 mg PO HS #0 tabs 06/06/12 03/13/25 History SIMVASTATIN (ZOCOR) 20 mg PO QPM #0 tabs 06/06/12 03/13/25 History TRAZODONE HCL (DESYREL) 50 mg PO HS #0 tabs 06/06/12 03/13/25 History Amlodipine (Norvasc) 5 mg PO DAILY #0 tabs 09/17/17 03/13/25 History CALCIUM CARBONATE-VITAMIN D (OSCAL 1 tab PO BID ##0 09/17/17 03/13/25 History 500/200 D-3) LOSARTAN POTASSIUM (COZAAR) 25 mg PO DAILY #0 tabs 09/17/17 03/13/25 History MIRTAZAPINE (REMERON) 60 mg PO HS #0 tabs 09/17/17 03/13/25 History alprazolam 0.25 mg tablet 0.25 mg PO BID 10/09/23 03/13/25 History multivitamin 1 tab PO DAILY 10/09/23 03/13/25 History Patient History Medical History (Updated 03/15/25 @ 13:51 by Guillermo Mckinney DO) Benign neoplasm of colon Surgical History (Updated 10/09/23 @ 14:43 by Mendy Lazaro) Hx of colonoscopy History of tonsillectomy and adenoidectomy Family History (Updated 10/09/23 @ 14:45 by Mendy Lazaro) Mother Alzheimer disease Grandmother (Maternal) Cancer Aunt Cancer Sister Depression Social History (Updated 10/09/23 @ 14:46 by Mendy Lazaro) Smoking Status: Former smoker Smoking End Date: Teenager; Do You Dip or Chew Tobacco: No; Hx Alcohol Use: No Hx Substance Use: No Preferred Language: [place] Communication Ability: Effective [employer] Required: No Beliefs That Will Affect Care: None marital status: Current Living Situation: Alone Feels Safe at Home: Yes Assistive Devices: None Physical Exam Physical Exam: EXAM: Constitutional: appearance normally developed Face: normocephalic and atraumatic Eyes: normal lids, normal conjunctiva Neck: supple Respiratory: normal effort Abdomen: non distended Skin: no rashes, lesions, or ulcers noted Psychiatric: normal mood and normal affect NEUROLOGIC EXAMINATION: Appearance: no acute distress Orientation: awake, alert and oriented x 3 Mental Status: alert Attention: normal Knowledge: appropriate Language: no aphasia Speech: no dysarthria Cranial Nerves: CN 2 - no visual defect on confrontation and pupils round, equal CN 3, 4, 6 - extra-ocular movements intact CN 5 - facial sensation intact CN 7 - no facial asymmetry CN 8 - intact hearing CN 9, 10 - palate symmetric CN 11 - good shoulder shrug CN 12 - tongue midline Gait: deferred Coordination: no ataxia with finger to nose testing Sensory: intact and symmetric to light touch Results & Data Vital Signs (Past 12 Hours) Vital Signs Temp Pulse Resp BP Pulse Ox O2 Del Method O2 Flow Rate 03/15/25 11:31 36.8 C 96 H 20 137/85 92 Room Air 03/15/25 07:30 37.2 C 103 H 18 129/80 91 Nasal Cannula 3 03/15/25 03:53 37.0 C 102 H 20 137/80 92 Nasal Cannula 2
--- NOTE | 2025-03-15 14:19 | Surgery Progress Note ---
Date of Service March 15, 2025 Assessment & Plan (1) Colonic diverticular abscess: Plan: 5cm abscess in close association with the uterine fundus and vasculature noted on presenting CT. IR here feels they are unable to access due to its location around surrounding bowel. Patient is HD stable on abx. Leukocytosis is improving, patient is afebrile. Continue IV abx, so far the patient is showing clinical response NPO for now Will consider clear liquids tomorrow Ambulate SCDs to LE while in bed. May have chemical DVT ppx at this time Admission and Anticipated Discharge Date Admission Date: March 13, 2025 Subjective I have seen and examined this patient this am. She states she feels improved this am. She denies nausea and states she passed gas. Physical Exam Constitutional: comfortable; not ill appearing, not in distress and not diaphoretic Respiratory: normal respiratory effort; no respiratory distress, no labored breathing and does not use accessory muscles Gastrointestinal (Abdomen): Inspection/Auscultation: abdomen normal to inspection; abdomen not distended Percussion/Palpation: + abdomen tender (moderate TTP RLQ and suprapubic midline, minimal TTP LLQ) and abdomen soft; abdomen not rigid Skin: no rashes, warm and dry Results & Data Vital Signs (Past 12 Hours) Vital Signs Temp Pulse Resp BP Pulse Ox O2 Del Method O2 Flow Rate 03/15/25 11:31 36.8 C 96 H 20 137/85 92 Room Air 03/15/25 07:30 37.2 C 103 H 18 129/80 91 Nasal Cannula 3 03/15/25 03:53 37.0 C 102 H 20 137/80 92 Nasal Cannula 2 PG Care Time/CCT Total # of Minutes Spent Total Time Spent with Patient: Total time spent is greater than 50% in coordination of care (as documented) at patient's floor/unit and/or counseling patient: Coding Level of Care Code 13795 SUB INP/OBS CARE 11/30MIN Diagnoses Colonic diverticular abscess K57.20
[2025-03-16 07:45] LABS: Basophils # (auto) 0.06 K/uL (0.00-0.20); Basophils % (auto) 0.4 %; Eosinophils # (auto) 0.21 K/uL (0.00-0.50); Eosinophils % (auto) 1.4 %; Hemoglobin 12.5 g/dl (12.0-16.0); Immature Granulocytes # (auto) 0.16 K/uL (0.01-0.20); Immature Granulocytes % (auto) 1.1 %; Lymphocytes # (auto) 1.24 K/uL (1.20-3.40); Lymphocytes % (auto) 8.1 %; Mean Corpuscular Hemoglobin 28.3 pg (25.0-34.0); Mean Corpuscular Hgb Conc 32.1 g/dL (32.0-36.0); Mean Corpuscular Volume 88.2 fL (80.0-100.0); Mean Platelet Volume 9.3 fL (9.4-12.4); Monocytes # (auto) 0.77 K/uL (0.11-0.59); Monocytes % (auto) 5.1 %; Neutrophils # (auto) 12.79 K/uL (1.40-6.50); Neutrophils % (auto) 83.9 %; Platelet Count 219 K/uL (130-400); Red Blood Count 4.42 M/uL (4.20-5.40); White Blood Count 15.23 K/ul (4.8-10.8)
[2025-03-16 08:00] LABS: Calcium 8.8 mg/dl (8.6-10.3); Creatinine Clr Calc Pharmacy 92.4 ml/min; Potassium 3.4 mmol/L (3.5-5.1)
[2025-03-16] MEDS: POTASSIUM CHLORIDE CRTAB 20 MEQ TABCR PO STA (09:24)
--- NOTE | 2025-03-16 11:05 | Surgery Progress Note ---
Date of Service March 16, 2025 Assessment & Plan (1) Colonic diverticular abscess: Plan: Likely secondary to diverticulitis. The abscess was deemed to not be amenable to percutaneous drainage by our interventionalist so she has been admitted to the medical service for conservative management. Her leukocytosis continues to resolve and she has been afebrile for over 24 hours with no fevers o/n. Intermittent tachycardia. She may have a clear liquid diet Pain control and antiemetics as needed Continue with IV abx IVF until tolerating PO well Ambulate aggressively Pt may have chemical DVT ppx Labs in the am Admission and Anticipated Discharge Date Admission Date: March 13, 2025 Subjective The patient was seen and examined this am. She has no complaints this am and stated she feels better. She was sitting in a chair at the time of my visit and taking her medications. Physical Exam Constitutional: no acute distress, not ill appearing, no altered mental status and not diaphoretic Respiratory: normal respiratory effort; no respiratory distress, no labored breathing and does not use accessory muscles Gastrointestinal (Abdomen): Inspection/Auscultation: abdomen normal to inspection Pt sitting up in the chair taking her medications Skin: no rashes, warm and dry Psychiatric: Orientation: alert and oriented x 3 Results & Data Vital Signs (Past 12 Hours) Vital Signs Temp Pulse Pulse Resp BP Pulse Ox O2 Del Method 03/16/25 07:41 36.7 C 101 H 24 162/97 H 93 Room Air 03/16/25 07:21 93 H 03/16/25 03:55 89 18 143/82 H 90 Room Air 03/16/25 00:20 36.8 C 97 H 20 138/83 92 Room Air PG Care Time/CCT Total # of Minutes Spent Total Time Spent with Patient: Total time spent is greater than 50% in coordination of care (as documented) at patient's floor/unit and/or counseling patient: Coding Level of Care Code 94892 SUB INP/OBS CARE 11/30MIN Diagnoses Colonic diverticular abscess K57.20
--- NOTE | 2025-03-16 12:06 | Hospitalist Progress Note ---
Date of Service March 16, 2025 Assessment & Plan (1) Colonic diverticular abscess: Plan: 69-year-old female with past medical history significant for dyslipidemia, hypertension, vitamin D deficiency, bipolar affective disorder and depression presents with left-sided abdominal pain. Patient says left-sided abdominal pain started Monday morning 3:30 AM. Pain is 9/10 in severity. Associated with dry heaves. Having normal bowel movements. Normal micturition. Denies any chest pain. No shortness of breath. No cough. Has some runny nose. No sore throat. No earaches. Slightly tachycardic. Blood pressure is okay. She had temperature at home. Currently afebrile. History of diverticulitis several years ago. Colon diverticular abscess CT scan showing 4.1 x 5.1 cm diverticular abscess Multiple locoregional lymph nodes largest 1.1 x1.3 cm. Multiple left external iliac lymph nodes Er started on IV Zosyn and Dapto which will be continued NPO,IV fluids and symptomatic medications for pain and nausea vomiting Surgical consult for further recommendations Has been feeling little better and is out of bed on a chair Bowel sounds remain sluggish and bowel is not moved yet Clinically better with improvement of abdominal symptoms and bowel is moved Will start clears orally Advised to have more ambulation Duodenal diverticula 2 large uncomplicated duodenal diverticula measuring 6.5 x 6.4 cm Asymptomatic Further recommendation from surgeon awaited Possibility of Parkinson disease has been ruled out Appreciate neuro input Possible left gonadal vein thrombophlebitis Will follow CT venogram abdomen pelvis- CT venogram did not show any evidence of thrombosis Hypertension Will hold amlodipine and losartan for now Blood pressure remains stable Hyperlipidemia Hold statin while on Dapto Bipolar disorder and depression Continue home medications Follow lithium levels DVT prophylaxis SCDs for now Disposition Med/telemetry Full code. Admission and Anticipated Discharge Date Admission Date: March 13, 2025 Subjective 03/14/2025 The patient was seen and examined in medical telemetry unit She was admitted with left-sided abdominal pain and fever for the last 2 days Has been feeling little better but he still has significant pain in the left sided abdomen Denies any epigastric pain and denies any nausea and/or vomiting No more fever no chills 03/15/2025 The patient was seen and examined in medical telemetry unit She has been feeling much better and is out of bed on a chair Denies any more abdominal pain, nausea and/or vomiting Bowel has not moved 03/16/2025 The patient was seen and examined in medical telemetry unit She has been feeling much better and is out of bed on a chair Abdominal distention is improved and the pain is much better She had a small bowel movement Denies any other significant symptoms Review of Systems Review of Systems: All systems reviewed and are unremarkable except as noted below Physical Exam Physical Exam: Lying in bed with some distress due to abdominal discomfort and distention Constitutional: well developed, well nourished, + ill appearing and + obese Eyes: PERRL, conjunctivae normal, anicteric sclerae ENMT: external ear and nose normal, oropharynx normal Neck: trachea midline, no thyromegaly Respiratory: no respiratory distress Auscultation: lungs clear to auscultation bilaterally Cardiovascular: Rate/Rhythm: regular rate and regular rhythm; not tachycardic Heart Sounds: normal S1 and normal S2; no murmur Extremities: no edema Gastrointestinal (Abdomen): Inspection/Auscultation: normal bowel sounds; abdomen not distended Percussion/Palpation: + abdomen tender (Mostly of the left side of the abdomen with some guarding and rigidity) and abdomen soft Neurologic: normal touch/pain/proprioception and moves all extremities; no focal motor deficits Psychiatric: A+Ox3, euthymic affect Lymphatic: no cervical or axillary lymphadenopathy Results & Data Results & Data Vital Signs (Past 12 Hours) Vital Signs Temp Pulse Pulse Resp BP Pulse Ox O2 Del Method 03/16/25 07:41 36.7 C 101 H 24 162/97 H 93 Room Air 03/16/25 07:21 93 H 03/16/25 03:55 89 18 143/82 H 90 Room Air 03/16/25 00:20 36.8 C 97 H 20 138/83 92 Room Air 03/15/25 21:49 98 H Laboratory Results Short CBC 03/16/25 Range/Units 07:16 WBC 15.23 H (4.8-10.8) K/ul Hgb 12.5 (12.0-16.0) g/dl Hct 39.0 (37.0-47.0) % Plt Count 219 (130-400) K/uL [facility] 03/16/25 07:16 Sodium 140 Potassium 3.4 L Chloride 111 H Carbon Dioxide 21 BUN 9 Creatinine 0.60 Glucose 95 Calcium 8.8 Medications Administered Current Inpatient Medications Alprazolam (Alprazolam 0.25 Mg Tablet) 0.25 mg PO BID [facility] Stop: 04/13/25 08:59 Last Admin: 03/16/25 08:00 Dose: 0.25 mg Hydromorphone HCl (Hydromorphone Inj 0.5 Mg/0.5 Ml Syr) 0.25 mg IV Q6H PRN PRN Reason: Moderate Pain (Scale 4, 5, 6) Stop: 03/27/25 23:38 Last Admin: 03/14/25 16:37 Dose: 0.25 mg Hydromorphone HCl (Hydromorphone Inj 0.5 Mg/0.5 Ml Syr) 0.5 mg IV Q6H PRN PRN Reason: Severe Pain (Scale 7, 8, 9,10) Stop: 03/27/25 23:38 Last Admin: 03/14/25 22:47 Dose: 0.5 mg Piperacillin Sod/Tazobactam Sod (Zosyn) 4.5 gm in 100 mls @ 25 mls/hr IV Q8H [facility]; Protocol Stop: 03/24/25 00:59 Last Admin: 03/16/25 08:00 Dose: 25 mls/hr Daptomycin 500 mg/ Syringe 10 mls @ 5 mls/min IV Q24H [facility]; Protocol Stop: 03/16/25 20:59 Last Admin: 03/15/25 21:02 Dose: 5 mls/min Sodium Chloride (Nss) 1,000 mls @ 125 mls/hr IV .Q8H [facility] Stop: 03/16/25 23:38 Last Admin: 03/16/25 09:24 Dose: 125 mls/hr [place] Carbonate ([place] Carbonate 450 Mg Tabcr) 450 mg PO HS [facility] Stop: 04/13/25 20:59 Last Admin: 03/15/25 21:01 Dose: 450 mg Mirtazapine (Mirtazapine Tab 15 Mg Tab) 60 mg PO HS [facility] Stop: 04/13/25 20:59 Last Admin: 03/15/25 21:00 Dose: 60 mg Multivitamins (Multivitamin Tab) 1 tab PO DAILY [facility] Stop: 04/13/25 08:59 Last Admin: 03/16/25 08:00 Dose: 1 tab Nitroglycerin (Nitroglycerin Sl 0.4 Mg/Tab Tab) 0.4 mg SL Q5M PRN PRN Reason: Chest Pain Stop: 04/12/25 23:38 Olanzapine (Olanzapine 5 Mg Tablet) 5 mg PO HS [facility] Stop: 04/13/25 20:59 Last Admin: 03/15/25 21:00 Dose: 5 mg Ondansetron HCl (Ondansetron Inj 2 Mg/Ml 2 Ml Vial) 4 mg IV Q6H PRN PRN Reason: Nausea Stop: 04/12/25 23:38 Last Admin: 03/14/25 22:52 Dose: 4 mg Trazodone HCl (Trazodone Hcl 50 Mg Tab) 50 mg PO HS [facility] Stop: 04/13/25 20:59 Last Admin: 03/15/25 21:01 Dose: 50 mg
[2025-03-17 06:34] LABS: BUN Creatinine Ratio 10.2 (10-20); Calcium 8.7 mg/dl (8.6-10.3); Creatinine Clr Calc Pharmacy 95.2 ml/min; Potassium 3.3 mmol/L (3.5-5.1)
--- NOTE | 2025-03-17 06:36 | Surgery Progress Note ---
Date of Service March 17, 2025 Assessment & Plan (1) Colonic diverticular abscess: Plan: Likely secondary to diverticulitis. The abscess was deemed to not be amenable to percutaneous drainage by our interventionalist so she has been admitted to the medical service for conservative management. Her leukocytosis continues to resolve and she has remained afebrile. She has had low level tachycardia since admission without worsening clinical symptoms, chest pains or shortness of breath. She is on a clear liquid diet that was started yesterday and tolerating well. Her diet may be advanced as tolerated ultimately to low fiber. Pain control and antiemetics as needed Continue with IV abx May consider Hep-Lock IV. Ambulate aggressively Pt may have chemical DVT ppx Follow-up labs, labs not returned yet for this a.m. Dr. Ritter will be on service this week. Surgery will continue to follow for now. Please contact the on-call [facility] with any questions. Admission and Anticipated Discharge Date Admission Date: March 13, 2025 Subjective Patient states she feels good today. She was started on clear liquids yesterday and has tolerated well without nausea or vomiting. Patient states she had mild left-sided pain yesterday which is similar to the pain she gets when she is constipated. Following that she did have a bowel movement which relieved the pain. She is also passing gas. Results & Data Vital Signs (Past 12 Hours) Vital Signs Temp Pulse Pulse Resp BP Pulse Ox O2 Del Method 03/17/25 02:39 36.5 C 93 H 18 145/82 H 92 Room Air 03/16/25 22:46 36.5 C 93 H 18 131/76 92 Room Air 03/16/25 22:01 94 H 03/16/25 19:04 36.8 C 94 H 18 148/87 H 94 Room Air PG Care Time/CCT Total # of Minutes Spent Total Time Spent with Patient: Total time spent is greater than 50% in coordination of care (as documented) at patient's floor/unit and/or counseling patient: Coding Level of Care Code 56208 SUB INP/OBS CARE 11/30MIN Diagnoses Colonic diverticular abscess K57.20
[2025-03-17] MEDS: POTASSIUM CHLORIDE CRTAB 20 MEQ TABCR PO STA (08:10)
[2025-03-17 08:51] LABS: Basophils # (auto) 0.06 K/uL (0.00-0.20); Basophils % (auto) 0.5 %; Eosinophils # (auto) 0.36 K/uL (0.00-0.50); Eosinophils % (auto) 2.8 %; Hematocrit (blood only) 36.6 % (37.0-47.0); Hemoglobin 12.2 g/dl (12.0-16.0); Immature Granulocytes # (auto) 0.18 K/uL (0.01-0.20); Immature Granulocytes % (auto) 1.4 %; Lymphocytes # (auto) 1.48 K/uL (1.20-3.40); Lymphocytes % (auto) 11.6 %; Mean Corpuscular Hemoglobin 29.1 pg (25.0-34.0); Mean Corpuscular Hgb Conc 33.3 g/dL (32.0-36.0); Mean Corpuscular Volume 87.4 fL (80.0-100.0); Mean Platelet Volume 9.6 fL (9.4-12.4); Monocytes # (auto) 0.74 K/uL (0.11-0.59); Monocytes % (auto) 5.8 %; Neutrophils # (auto) 9.99 K/uL (1.40-6.50); Neutrophils % (auto) 77.9 %; Platelet Count 252 K/uL (130-400); RDW Coefficient of Variation 13.1 % (11.5-14.5); RDW Standard Deviation 41.5 fL (36.4-46.3); Red Blood Count 4.19 M/uL (4.20-5.40); White Blood Count 12.81 K/ul (4.8-10.8)
--- NOTE | 2025-03-17 10:59 | XRay Report ---
XR chest 2V PA/lateral CLINICAL HISTORY: R/O CHF/Pneumonia COMPARISON STUDY: 06/06/2012 FINDINGS: Heart size and pulmonary vasculature are normal. There is interval mild stranding opacity a t the right lung base. No other consolidation or pleural effusion. IMPRESSION: Atelectasis versus early pneumonia right lung base. ACT 112: Negative or not required by law. Electronically signed by: Michael Herrera M.D. 03/17/2025 10:58 AM
--- NOTE | 2025-03-17 11:07 | Hospitalist Progress Note ---
Date of Service March 17, 2025 Assessment & Plan (1) Colonic diverticular abscess: Plan: 69-year-old female with past medical history significant for dyslipidemia, hypertension, vitamin D deficiency, bipolar affective disorder and depression presents with left-sided abdominal pain. Patient says left-sided abdominal pain started Monday morning 3:30 AM. Pain is 9/10 in severity. Associated with dry heaves. Having normal bowel movements. Normal micturition. Denies any chest pain. No shortness of breath. No cough. Has some runny nose. No sore throat. No earaches. Slightly tachycardic. Blood pressure is okay. She had temperature at home. Currently afebrile. History of diverticulitis several years ago. Colon diverticular abscess CT scan showing 4.1 x 5.1 cm diverticular abscess Multiple locoregional lymph nodes largest 1.1 x1.3 cm. Multiple left external iliac lymph nodes Er started on IV Zosyn and Dapto which will be continued NPO,IV fluids and symptomatic medications for pain and nausea vomiting Surgical consult for further recommendations Has been feeling little better and is out of bed on a chair Bowel sounds remain sluggish and bowel is not moved yet Clinically better with improvement of abdominal symptoms and bowel is moved Will start clears orally Advised to have more ambulation Clinically much better and has been moving bowel- white cell count has improved Diet has been elevated to full liquid Bibasilar crackles with some wheezing Chest x-ray showed atelectatic change in the bases but doubt any pneumonia Incentive spirometry has been ordered and the patient is reassured Will not add any other antibiotic Duodenal diverticula 2 large uncomplicated duodenal diverticula measuring 6.5 x 6.4 cm Asymptomatic Further recommendation from surgeon awaited Possibility of Parkinson disease has been ruled out Appreciate neuro input Possible left gonadal vein thrombophlebitis Will follow CT venogram abdomen pelvis- CT venogram did not show any evidence of thrombosis Hypertension Will hold amlodipine and losartan for now Blood pressure remains stable Hyperlipidemia Hold statin while on Dapto Bipolar disorder and depression Continue home medications Follow lithium levels DVT prophylaxis SCDs for now Disposition Med/telemetry Full code. Admission and Anticipated Discharge Date Admission Date: March 13, 2025 Subjective 03/14/2025 The patient was seen and examined in medical telemetry unit She was admitted with left-sided abdominal pain and fever for the last 2 days Has been feeling little better but he still has significant pain in the left sided abdomen Denies any epigastric pain and denies any nausea and/or vomiting No more fever no chills 03/15/2025 The patient was seen and examined in medical telemetry unit She has been feeling much better and is out of bed on a chair Denies any more abdominal pain, nausea and/or vomiting Bowel has not moved 03/16/2025 The patient was seen and examined in medical telemetry unit She has been feeling much better and is out of bed on a chair Abdominal distention is improved and the pain is much better She had a small bowel movement Denies any other significant symptoms 03/17/2025 The patient was seen and examined in medical telemetry unit She has been feeling much better but looks ill likely secondary to weakness Abdominal symptoms are improved and bowel is moving Denies any shortness of breath but has wheezing involving the bases with some crackles Review of Systems Review of Systems: All systems reviewed and are unremarkable except as noted below Physical Exam Physical Exam: Lying in bed with some distress due to abdominal discomfort and distention Constitutional: well developed, well nourished, + ill appearing and + obese Eyes: PERRL, conjunctivae normal, anicteric sclerae ENMT: external ear and nose normal, oropharynx normal Neck: trachea midline, no thyromegaly Respiratory: no respiratory distress Auscultation: + crackles (Crackles bibasilarly and more on the right than the left) and + wheezes (Minimal wheezing involving the bases as well) Cardiovascular: Rate/Rhythm: regular rate and regular rhythm; not tachycardic Heart Sounds: normal S1 and normal S2; no murmur Extremities: no edema Gastrointestinal (Abdomen): Inspection/Auscultation: normal bowel sounds; abdomen not distended Percussion/Palpation: + abdomen tender (Mostly of the left side of the abdomen with some guarding and rigidity) and abdomen soft Musculoskeletal: No acute arthritis involving any of the joint Neurologic: normal touch/pain/proprioception and moves all extremities; no focal motor deficits Psychiatric: A+Ox3, euthymic affect Lymphatic: no cervical or axillary lymphadenopathy Results & Data Results & Data Vital Signs (Past 12 Hours) Vital Signs Temp Pulse Pulse Resp BP Pulse Ox O2 Del Method 03/17/25 08:06 36.6 C 88 18 143/86 H 92 Room Air 03/17/25 07:52 Room Air 03/17/25 07:14 90 03/17/25 02:39 36.5 C 93 H 18 145/82 H 92 Room Air Laboratory Results Short CBC 03/17/25 Range/Units 05:48 WBC 12.81 H (4.8-10.8) K/ul Hgb 12.2 (12.0-16.0) g/dl Hct 36.6 L (37.0-47.0) % Plt Count 252 (130-400) K/uL [facility] 03/17/25 05:47 Sodium 141 Potassium 3.3 L Chloride 111 H Carbon Dioxide 25 BUN 6 Creatinine 0.59 L Glucose 104 H Calcium 8.7 Medications Administered Current Inpatient Medications Alprazolam (Alprazolam 0.25 Mg Tablet) 0.25 mg PO BID [facility] Stop: 04/13/25 08:59 Last Admin: 03/17/25 08:10 Dose: 0.25 mg Hydromorphone HCl (Hydromorphone Inj 0.5 Mg/0.5 Ml Syr) 0.25 mg IV Q6H PRN PRN Reason: Moderate Pain (Scale 4, 5, 6) Stop: 03/27/25 23:38 Last Admin: 03/14/25 16:37 Dose: 0.25 mg Hydromorphone HCl (Hydromorphone Inj 0.5 Mg/0.5 Ml Syr) 0.5 mg IV Q6H PRN PRN Reason: Severe Pain (Scale 7, 8, 9,10) Stop: 03/27/25 23:38 Last Admin: 03/14/25 22:47 Dose: 0.5 mg Piperacillin Sod/Tazobactam Sod (Zosyn) 4.5 gm in 100 mls @ 25 mls/hr IV Q8H [facility]; Protocol Stop: 03/24/25 00:59 Last Admin: 03/17/25 08:06 Dose: 25 mls/hr [place] Carbonate ([place] Carbonate 450 Mg Tabcr) 450 mg PO [facility] Stop: 04/13/25 20:59 Last Admin: 03/16/25 21:17 Dose: 450 mg Mirtazapine (Mirtazapine Tab 15 Mg Tab) 60 mg PO HS [facility] Stop: 04/13/25 20:59 Last Admin: 03/16/25 21:17 Dose: 60 mg Multivitamins (Multivitamin Tab) 1 tab PO DAILY [facility] Stop: 04/13/25 08:59 Last Admin: 03/17/25 08:10 Dose: 1 tab Nitroglycerin (Nitroglycerin Sl 0.4 Mg/Tab Tab) 0.4 mg SL Q5M PRN PRN Reason: Chest Pain Stop: 04/12/25 23:38 Olanzapine (Olanzapine 5 Mg Tablet) 5 mg PO HS [facility] Stop: 04/13/25 20:59 Last Admin: 03/16/25 21:17 Dose: 5 mg Ondansetron HCl (Ondansetron Inj 2 Mg/Ml 2 Ml Vial) 4 mg IV Q6H PRN PRN Reason: Nausea Stop: 04/12/25 23:38 Last Admin: 03/14/25 22:52 Dose: 4 mg Trazodone HCl (Trazodone Hcl 50 Mg Tab) 50 mg PO HS [facility] Stop: 04/13/25 20:59 Last Admin: 03/16/25 21:17 Dose: 50 mg
[2025-03-18 06:31] LABS: Basophils # (auto) 0.08 K/uL (0.00-0.20); Basophils % (auto) 0.7 %; Eosinophils # (auto) 0.42 K/uL (0.00-0.50); Eosinophils % (auto) 3.5 %; Hemoglobin 12.3 g/dl (12.0-16.0); Immature Granulocytes % (auto) 4.2 %; Lymphocytes # (auto) 1.75 K/uL (1.20-3.40); Lymphocytes % (auto) 14.6 %; Mean Corpuscular Hemoglobin 28.1 pg (25.0-34.0); Mean Corpuscular Hgb Conc 32.4 g/dL (32.0-36.0); Mean Corpuscular Volume 86.8 fL (80.0-100.0); Mean Platelet Volume 9.1 fL (9.4-12.4); Monocytes # (auto) 0.79 K/uL (0.11-0.59); Monocytes % (auto) 6.6 %; Neutrophils # (auto) 8.41 K/uL (1.40-6.50); Neutrophils % (auto) 70.4 %; Platelet Count 253 K/uL (130-400); RDW Coefficient of Variation 13.2 % (11.5-14.5); RDW Standard Deviation 41.5 fL (36.4-46.3); Red Blood Count 4.38 M/uL (4.20-5.40); White Blood Count 11.95 K/ul (4.8-10.8)
--- NOTE | 2025-03-18 08:54 | Surgery Progress Note ---
Date of Service March 18, 2025 Assessment & Plan (1) Colonic diverticular abscess: Plan: pt feeling better today tolerating full liquids , may advance to low fiber +flatus and BMs No abd pain , abd soft non TTP VSS , afebrile , WBC downtrending 11 pt will course of oral abx on d/c and follow up with GI for colonoscopy in 6-8 weeks general surgery will sign off , call with question/concerns as above. f/u in 2-3 weeks. Admission and Anticipated Discharge Date Admission Date: March 13, 2025 Subjective pt feeling better today denies abd pain, f/c, cp , sob , n/v Review of Systems Constitutional: no fever and no chills Respiratory: no dyspnea Cardiovascular: no chest pain Gastrointestinal: no abdominal pain, no nausea and no vomiting Physical Exam Constitutional: cooperative and comfortable; no acute distress Respiratory: normal respiratory effort and able to speak in complete sentences; no respiratory distress Cardiovascular: Rate/Rhythm: regular rate Gastrointestinal (Abdomen): Inspection/Auscultation: abdomen not distended Percussion/Palpation: abdomen soft; abdomen nontender Results & Data Vital Signs (Past 12 Hours) Vital Signs Temp Pulse Pulse Resp BP Pulse Ox O2 Del Method 03/18/25 07:45 97.5 F L 78 18 147/84 H 92 Room Air 03/18/25 07:06 74 03/18/25 02:31 97.5 F L 93 H 20 157/88 H 95 Room Air 03/17/25 22:33 98.1 F 90 18 128/83 94 Room Air 03/17/25 21:36 94 H Results CBC w Diff Results: RBC 4.38 M/uL (4.20-5.40) 03/18/25 WBC 11.95 K/ul (4.8-10.8) H 03/18/25 Hgb 12.3 g/dl (12.0-16.0) 03/18/25 Hct 38.0 % (37.0-47.0) 03/18/25 MCV 86.8 fL (80.0-100.0) 03/18/25 MCH 28.1 pg (25.0-34.0) 03/18/25 MCHC 32.4 g/dL (32.0-36.0) 03/18/25 RDW Standard Deviation 41.5 fL (36.4-46.3) 03/18/25 RDW Coefficient of Variation 13.2 % (11.5-14.5) 03/18/25 Plt Count 253 K/uL (130-400) 03/18/25 MPV 9.1 fL (9.4-12.4) L 03/18/25 Neutrophils (%) (Auto) 70.4 % 03/18/25 Lymphocytes (%) (Auto) 14.6 % 03/18/25 Monocytes # (Auto) 0.79 K/uL (0.11-0.59) H 03/18/25 Eosinophils # (Auto) 0.42 K/uL (0.00-0.50) 03/18/25 Immature Granulocyte % (Auto) 4.2 % 03/18/25 Neutrophils # (Auto) 8.41 K/uL (1.40-6.50) H 03/18/25 Lymphocytes # (Auto) 1.75 K/uL (1.20-3.40) 03/18/25 Monocytes # (Auto) 0.79 K/uL (0.11-0.59) H 03/18/25 Eosinophils # (Auto) 0.42 K/uL (0.00-0.50) 03/18/25 Basophils # (Auto) 0.08 K/uL (0.00-0.20) 03/18/25 Immature Granulocyte # (Auto) 0.50 K/uL (0.01-0.20) H 03/18 PG Care Time/CCT Total # of Minutes Spent Total Time Spent with Patient: Total time spent is greater than 50% in coordination of care (as documented) at patient's floor/unit and/or counseling patient: Coding Level of Care Code 49943 Post Operative Follow-Up Diagnoses Colonic diverticular abscess K57.20
--- NOTE | 2025-03-18 12:10 | Hospitalist Progress Note ---
Date of Service March 18, 2025 Assessment & Plan (1) Colonic diverticular abscess: (2) Parkinsonism: (3) Bipolar disorder: Plan Patient steadily improving from diverticular abscess, tolerating diet Discontinue telemetry Transition to oral antibiotics, patient concerned with antibiotics and her lithium. Check lithium level Reviewed surgical recommendations for advancing diet and plans for home Continue to encourage ambulation Anticipate discharge home tomorrow, if continues to do well patient aware Admission and Anticipated Discharge Date Admission Date: March 13, 2025 Subjective Patient reports she is doing well. No significant abdominal pain. She states she was up and ambulated around the unit with therapy. Tolerated advancing her diet this morning. Physical Exam Physical Exam: Constitutional: Alert, nontoxic HEENT: Mucous membranes moist. Lungs: Clear to auscultation, decreased, no wheezes rales or rhonchi CV: S1-S2, regular Abdomen: Soft, minimal tenderness, no guarding or rigidity, no distention Extremities: No significant edema Neuro: Parkinsonian features Psych: Cooperative, normal mood Results & Data Results & Data Vital Signs (Past 12 Hours) Vital Signs Temp Pulse Pulse Resp BP Pulse Ox O2 Del Method 03/18/25 11:23 37.1 C 84 18 117/77 93 Room Air 03/18/25 07:45 36.4 C L 78 18 147/84 H 92 Room Air 03/18/25 07:06 74 03/18/25 02:31 36.4 C L 93 H 20 157/88 H 95 Room Air Diagnostic Findings Reviewed imaging, laboratory and diagnostic studies. Pertinent findings as below. WBCs 11.9, continuing to improve
[2025-03-18] MEDS: AMOXICILLIN/CLAVULANATE 875 MG TAB PO SCH (16:14)
[2025-03-18 22:52] VITALS: PULSE 86; RESP 16; TEMP 98.1; O2SAT 94
--- NOTE | 2025-03-19 07:59 | Discharge Summary ---
Discharge Summary Date of Service March 19, 2025 Principal Dx & Hospital Course #1 = Principal Diagnosis (1) Colonic diverticular abscess: (2) Parkinsonism: (3) Bipolar disorder: Plan Patient 69-year-old female with known diverticulosis initially presented to urgent care with fever chills, abdominal pain, and dry heaves and was sent to the emergency department. In the emergency room imaging was consistent with acute diverticulitis and diverticular abscess. Patient was admitted to the hospital. She is given IV fluid resuscitation and started broad-spectrum IV antibiotics. Surgical consultation was obtained and was in agreement with medical management without any surgical intervention this hospitalization. Neurology consultation was also obtained for concern of Parkinson. Was evaluated by neuro, mild Parkinson's possibly induced from her mental health medications. No changes in her medications were recommended and recommended outpatient neurology follow-up as needed. Patient's symptoms steadily improved throughout her hospitalization her WBCs improved. Her diet was advanced. She tolerated this and was eventually transition to oral antibiotics. On the day of discharge her vital signs are stable. She had no abdominal pain. She was ambulating without difficulty tolerating her diet and can be discharged home with outpatient care and follow-up. Notes For Next Care Provider Patient should follow-up with general surgery as coordinated through their office Consider outpatient GI referral for possible colonoscopy Patient can follow-up with neurology outpatient as needed for her Parkinson's Follow-up with mental health providers as needed Work excuse/note for possible short-term disability given to patient excusing her for time of admission and recovery at home, can return to work on 03/24/2024 Medication Changes From Visit Augmentin for additional 7 days Admission HPI Per Admitting Provider 69-year-old female with past medical history significant for dyslipidemia, hypertension, vitamin D deficiency, bipolar affective disorder and depression presents with left-sided abdominal pain. Patient says left-sided abdominal pain started Monday morning 3:30 AM. Pain is 9/10 in severity. Associated with dry heaves. Having normal bowel movements. Normal micturition. Denies any chest pain. No shortness of breath. No cough. Has some runny nose. No sore throat. No earaches. Slightly tachycardic. Blood pressure is okay. She had temperature at home. Currently afebrile. History of diverticulitis several years ago. Past medical history. As mentioned above. Past surgical history. Colonoscopy. Tonsillectomy and adenoidectomy. Social history. No smoking. No alcohol use. No drug use. Family history. Paternal aunt had cancer. Maternal grandmother had cancer. Mother had Alzheimer's disease. Sister has depression. Admission Exam Per Admitting Provider See H&P Discharge Exam Constitutional: Alert, nontoxic HEENT: Mucous membranes moist. Lungs: Clear to auscultation, decreased, no wheezes rales or rhonchi CV: S1-S2, regular Abdomen: Soft, nontender, nondistended Extremities: No significant edema Neuro: Slow, deliberate movements, somewhat of a flat facies, ambulating without difficulty Psych: Cooperative, normal mood Updated Medication List Medication Instructions Recorded Confirmed Type LITHIUM CARBONATE ER (LITHOBID EXT 450 mg PO HS #0 tabs 06/06/12 03/13/25 History REL) OLANZAPINE (ZYPREXA) 5 mg PO HS #0 tabs 06/06/12 03/13/25 History SIMVASTATIN (ZOCOR) 20 mg PO QPM #0 tabs 06/06/12 03/13/25 History TRAZODONE HCL (DESYREL) 50 mg PO HS #0 tabs 06/06/12 03/13/25 History Amlodipine (Norvasc) 5 mg PO DAILY #0 tabs 09/17/17 03/13/25 History CALCIUM CARBONATE-VITAMIN D (OSCAL 1 tab PO BID ##0 09/17/17 03/13/25 History 500/200 D-3) LOSARTAN POTASSIUM (COZAAR) 25 mg PO DAILY #0 tabs 09/17/17 03/13/25 History MIRTAZAPINE (REMERON) 60 mg PO HS #0 tabs 09/17/17 03/13/25 History alprazolam 0.25 mg tablet 0.25 mg PO BID 10/09/23 03/13/25 History multivitamin 1 tab PO DAILY 10/09/23 03/13/25 History amoxicillin 875 mg-potassium 1 tab PO BIDM 7 days #14 tabs 03/19/25 Rx clavulanate 125 mg tablet Hospital Stay Data Consultations 03/13/25 20:56 ED Decision to Admit Stat 03/14/25 08:00 Consult General Surgery Routine 03/15/25 10:14 Consult Neurology Routine Diagnostic Imagining Performed 03/13/25 18:08 CT abd pelvis wo con Stat 03/13/25 23:13 CT abdomen pelvis veno w con Stat Reviewed imaging, laboratory and diagnostic studies. Pertinent findings as below. WBCs 11.9 significantly improved Hemoglobin 12.3 Electrolytes stable Creatinine 0.59 [place] 0.2 Pending Results Patient Have Any Pending Studies at Discharge: No Discharge Instructions Given to Patient (Per Discharging Provider) Please call the general surgery office for a follow up in 2 weeks . Discussed with PCP outpatient evaluation/consultation with gastroenterology for possible colonoscopy Total Time Total Time Spent Total Time Spent (In Minutes): 33
[2025-03-19] MEDS: POTASSIUM CHLORIDE CRTAB 20 MEQ TABCR PO STA (08:42)
[2025-03-19 10:43] VITALS: BP 144/89
== END 2025-03-19 11:50 | disposition home or self-care (01) | DRG 392 ==
LOC: ED 17:24 → SUATTDRO 21:31 → 2N 21:31